=== PATIENT | male | born 1930 | race Caucasian/White ===

== ENCOUNTER 2020-03-31 18:10 | Inpatient (IN) | payer OTHER ==
[~2020-03-31] VITALS: Ht 182.9 cm; Wt 80.3 kg
--- NOTE | 2020-03-31 18:20 | NUR ---
pt bibra from [facility] to ed bed 04. per ems report, pt is here for worsening generalized weakness and sob for days. no covid status recieved from ems. pt gowned and placed on monitor. 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
--- NOTE | 2020-03-31 18:30 | NUR ---
dr morales at bedside for eval.
--- NOTE | 2020-03-31 18:45 | NUR ---
iv line started, blood drawn and sent to lab.
[2020-03-31 18:49] LABS: BASOPHILS % (AUTO) 0.3 % (0.0-2.0); EOSINOPHILS % (AUTO) 0.1 % (0.0-6.0); HEMATOCRIT 27 % (39-51); HEMOGLOBIN 8.3 g/dL (13.5-17.5); LYMPHOCYTES # (AUTO) 1.8 /CMM (0.8-4.8); LYMPHOCYTES % (AUTO) 16.6 % (20.0-44.0); MEAN CORPUSCULAR HGB CONC 31 g/dl (31.0-36.0); MEAN CORPUSCULAR VOLUME 74 fL (80-96); MONOCYTES # (AUTO) 1.3 /CMM (0.1-1.30); MONOCYTES % (AUTO) 12.4 % (2.0-12.0); NEUTROPHILS # (AUTO) 7.7 /CMM (1.8-8.9); NEUTROPHILS % (AUTO) 70.6 % (43.0-81.0); PLATELET COUNT (AUTO) 179 /CMM (150-450); RED BLOOD CELL COUNT(AUTO) 3.63 MIL/uL (4.5-6.0); WHITE BLOOD COUNT (AUTO) 10.9 K/uL (4.3-11.0)
[2020-03-31 19:03] LABS: BILIRUBIN,URINE Negative (NEGATIVE); COLOR,URINE YELLOW (YELLOW); LEUKOCYTE ESTERASE ,URINE Negative (NEGATIVE); NITRITE, URINE Negative (NEGATIVE); PH,URINE 6.5 (5.0-8.0); PROTEIN,URINE 30 mg/dl (NEGATIVE); UGLUCOSE Negative (NEGATIVE); UROBILINOGEN,URINE 0.2 EU/dL (0.2)
[2020-03-31 19:06] LABS: BACTERIA,URINE Rare /HPF (None Seen); SQUAMOUS EPITHELIAL CELL,UR Few /HPF (None Seen); WBC,URINE NONE SEEN /HPF (0-3)
--- NOTE | 2020-03-31 19:15 | NUR ---
rec'd report from MELISA Machado for laine
--- NOTE | 2020-03-31 19:16 | NUR ---
report given to esvin taylor for laine.
[2020-03-31] MEDS ORDERED: ACETAMINOPHEN 650 MG/SUPP.RECT RC ONE (19:30)
[2020-03-31 19:38] LABS: CALCIUM, SERUM 8.2 mg/dL (8.5-10.1); CARBON DIOXIDE 21 mmol/L (21-32); CHLORIDE 102 mmol/L (98-107); CREATININE 1.7 mg/dL (0.6-1.3); GLUCOSE 187 mg/dL (74-106); POTASSIUM 4.8 mmol/L (3.5-5.1); SODIUM SERUM 136 mmol/L (136-145); UREA NITROGEN, BLOOD 23 mg/dL (7-18)
--- NOTE | 2020-03-31 19:41 | NUR ---
covid swab sent to lab
[2020-03-31 19:44] LABS: ALANINE AMINOTRANSFERASE 17 U/L (12-78); ALBUMIN 2.3 g/dL (3.4-5.0); ALKALINE PHOSPHATASE 82 U/L (46-116); ASPARTATE AMINOTRANSFERASE 24 U/L (15-37); BILIRUBIN,DIRECT 0.2 mg/dL (0.0-0.2); BILIRUBIN,TOTAL 0.7 mg/dL (0.2-1.0)
[2020-03-31] MEDS ORDERED: NS 0.9% IV ONE (20:00)
[2020-03-31] MEDS ORDERED: VANCOMYCIN 1 GM in IV D5W 250 ML IV ONE (20:00)
[2020-03-31] MEDS ORDERED: CEFEPIME 1 GM in IV D5W 50 ML IV ONE (20:00)
[2020-03-31 20:01] LABS: CREATINE KINASE, TOTAL 82 U/L (39-308); D-DIMER 5.12 mg/L(FEU (0.17-0.50); FERRITIN 221 ng/mL (8-388)
[2020-03-31 20:20] LABS: BAND % (MANUAL) 4 % (0.0-5.0); LYMPHOCYTES % (MANUAL) 24 % (16-48); MONOCYTES % (MANUAL) 2 % (0-11.0); NEUTROPHILS % (MANUAL) 70 (42-76)
[2020-03-31] MEDS ORDERED: ONDANSETRON HCL/PF 4 MG/2 ML VIAL IVP PRN (22:00)
[2020-03-31] MEDS ORDERED: ACETAMINOPHEN 650 MG/SUPP.RECT RC PRN (22:00)
--- NOTE | 2020-03-31 22:02 | NUR ---
REC'D A CALL FROM QASIM AT [facility] WITH AUTHORIZATION TO ADMIT THE PT AT [facility]. AUTH # [id number]
--- NOTE | 2020-03-31 22:06 | NUR ---
lab at bedside for lactic redraw
[2020-03-31] MEDS ORDERED: CEFEPIME 1 GM VIAL ONE (22:07)
[2020-03-31] MEDS ORDERED: VANCOMYCIN 1 GM VIAL ONE (22:07)
--- NOTE | 2020-03-31 22:15 | NUR ---
pt placed on 2L via NC for comfort.
[2020-03-31 23:17] LABS: C-REACTIVE PROTEIN 11.3 mg/dL (0.0-0.9)
[2020-04-01] MEDS ORDERED: ALBUTEROL SULFATE 8 GM HFA.AER.AD IH PRN
[2020-04-01] MEDS: CEFTRIAXONE 1 G in IV D5W 50 ML IV SCH ×2 (00:15→20:00)
[2020-04-01] MEDS ORDERED: CEFTRIAXONE 1GM BAG (ER ONLY) 50 ML IV ONE ×2 (00:20→19:54)
[2020-04-01] MEDS ORDERED: AZITHROMYCIN 500 MG VIAL ONE ×2 (00:20→19:54)
[2020-04-01] MEDS: AZITHROMYCIN 500 MG in IV D5W 250 ML IV SCH ×2 (00:30→20:30)
--- NOTE | 2020-04-01 00:45 | NUR ---
pt readjusted and resting comfortably
[2020-04-01] MEDS ORDERED: IV NS 0.9% 1,000 ML IV ONE (03:00)
[2020-04-01] MEDS ORDERED: ASPI-1169 PO (03:54)
[2020-04-01] MEDS ORDERED: METO25TA6 PO (03:55)
[2020-04-01 04:40] LABS: BASOPHILS % (AUTO) 0.3 % (0.0-2.0); EOSINOPHILS % (AUTO) 0.1 % (0.0-6.0); HEMATOCRIT 26 % (39-51); LYMPHOCYTES # (AUTO) 4.4 /CMM (0.8-4.8); LYMPHOCYTES % (AUTO) 30.3 % (20.0-44.0); MEAN CORPUSCULAR HGB CONC 31 g/dl (31.0-36.0); MEAN CORPUSCULAR VOLUME 75 fL (80-96); MONOCYTES # (AUTO) 1.8 /CMM (0.1-1.30); MONOCYTES % (AUTO) 12.5 % (2.0-12.0); NEUTROPHILS # (AUTO) 8.2 /CMM (1.8-8.9); NEUTROPHILS % (AUTO) 56.8 % (43.0-81.0); PLATELET COUNT (AUTO) 166 /CMM (150-450); RED BLOOD CELL COUNT(AUTO) 3.49 MIL/uL (4.5-6.0); WHITE BLOOD COUNT (AUTO) 14.4 K/uL (4.3-11.0)
--- NOTE | 2020-04-01 05:00 | NUR ---
pt changed and made comfortable
[2020-04-01 05:08] LABS: ALANINE AMINOTRANSFERASE 12 U/L (12-78); ALKALINE PHOSPHATASE 73 U/L (46-116); ASPARTATE AMINOTRANSFERASE 24 U/L (15-37); BILIRUBIN,TOTAL 0.5 mg/dL (0.2-1.0); CALCIUM, SERUM 7.5 mg/dL (8.5-10.1); CARBON DIOXIDE 22 mmol/L (21-32); CHLORIDE 110 mmol/L (98-107); CREATININE 1.3 mg/dL (0.6-1.3); GLUCOSE 103 mg/dL (74-106); POTASSIUM 4.6 mmol/L (3.5-5.1); SODIUM SERUM 142 mmol/L (136-145); TOTAL PROTEIN, SERUM 6.3 g/dL (6.4-8.2); UREA NITROGEN, BLOOD 20 mg/dL (7-18)
[2020-04-01 05:14] LABS: FERRITIN 249 ng/mL (8-388)
[2020-04-01] MEDS: METOPROLOL TARTRATE 25 MG TABLET PO SCH ×3 (05:15→16:16)
[2020-04-01] MEDS ORDERED: METOPROLOL TARTRATE 25 MG TABLET ONE ×3 (05:15→16:05)
--- NOTE | 2020-04-01 07:05 | NUR ---
gave report to claudia bella for laine
[2020-04-01] MEDS ORDERED: ASPIRIN 81 MG TAB.CHEW ONE (08:13)
[2020-04-01] MEDS: ASPIRIN 81 MG TAB.CHEW PO SCH (08:26)
--- NOTE | 2020-04-01 08:38 | NUR ---
PATIENT TAKEN TO RADIOLOGY.
--- NOTE | 2020-04-01 09:06 | NUR ---
[facility] [phone] [facility].
--- NOTE | 2020-04-01 12:00 | NUR ---
PATIENT ASLEEP, BUT EASILY AROUSABLE. ALERT AND ORIENTED. NO DISTRESS NOTED, TURNED AND REPOSITIONED.
[2020-04-01] MEDS: IV NS 0.9% 1,000 ML IV PRN ×2 (16:02)
--- NOTE | 2020-04-01 17:03 | NUR ---
PATIENT NOTED TO HAVE TROUBLE SWALLOWING WHOLE PILLS AND REGULAR DIET, INFORMED MD AND CHANGED DIET TO PUREED CARDIAC. PATIENT'S KEPT COMFORTABLE. VS STABLE. CONTINUES ON 3LPM VIA NC WITH SPO2 OF 100%. NO DISTRESS NOTED.
--- NOTE | 2020-04-01 19:05 | NUR ---
REC'D REPORT FROM MELISA MCKEON FOR GIANCARLO
--- NOTE | 2020-04-01 22:30 | NUR ---
pt repositioned and made comfortable
--- NOTE | 2020-04-02 01:22 | NUR ---
pt sleeping. easily arousable
--- NOTE | 2020-04-02 04:27 | NUR ---
report given to MELISA Neri for laine.
[2020-04-02 04:34] VITALS: BP 117/49
[2020-04-02 04:54] LABS: BASOPHILS % (AUTO) 0.1 % (0.0-2.0); HEMATOCRIT 27 % (39-51); HEMOGLOBIN 8.4 g/dL (13.5-17.5); LYMPHOCYTES # (AUTO) 2.2 /CMM (0.8-4.8); LYMPHOCYTES % (AUTO) 17.2 % (20.0-44.0); MEAN CORPUSCULAR HGB CONC 31 g/dl (31.0-36.0); MEAN CORPUSCULAR VOLUME 74 fL (80-96); MONOCYTES # (AUTO) 1.2 /CMM (0.1-1.30); MONOCYTES % (AUTO) 9.8 % (2.0-12.0); NEUTROPHILS # (AUTO) 9.3 /CMM (1.8-8.9); NEUTROPHILS % (AUTO) 72.9 % (43.0-81.0); PLATELET COUNT (AUTO) 179 /CMM (150-450); RED BLOOD CELL COUNT(AUTO) 3.67 MIL/uL (4.5-6.0); WHITE BLOOD COUNT (AUTO) 12.7 K/uL (4.3-11.0)
[2020-04-02 05:00] VITALS: BP 117/49
--- NOTE | 2020-04-02 05:30 | NUR ---
RN NOTE PT ARRIVED TO THE UNIT VIA GURNEY. PT IS A/A/O 3, PT ON TELE MONITOR SHOWING ST HEART RATE IN 130s. PT IS ON 2 L VIA NC SATING 96%, PT HAS UNLABORED BREATHING. SAFETY MEASURES IN PLACE.
[2020-04-02 05:35] LABS: CALCIUM, SERUM 8.2 mg/dL (8.5-10.1); CREATININE 1.3 mg/dL (0.6-1.3); MAGNESIUM 1.9 mg/dL (1.8-2.4); PHOSPHORUS 2.9 mg/dL (2.5-4.9); POTASSIUM 4.6 mmol/L (3.5-5.1)
[2020-04-02] MEDS: IV NS 0.9% 1,000 ML IV PRN ×2 (05:50→20:20)
--- NOTE | 2020-04-02 07:38 | NUR ---
RN NOTE PT REMAINED STABLE DURING MY SHIFT NO ACUTE CHANGES REPORT GIVEN TO INCOMING PT FOR GIANCARLO.
[2020-04-02 08:00] VITALS: BP 127/66
--- NOTE | 2020-04-02 08:00 | NUR ---
RN Opening note Received patient in bed, awaken able to responds all stimuli, Pt does no c/o pain or distress. Skin is warm to touch keep clean/dry intact IV site, respiratory even and unlabored with oxygen at 2L via NC O2sat 96%. Kept locked bed with elevated HOB for aspiration precaution and ensure airway and lowest bed foe safety. Call light within reach, will continue to monitor.
[2020-04-02] MEDS: ASPIRIN 81 MG TAB.CHEW PO SCH (09:24)
[2020-04-02] MEDS: METOPROLOL TARTRATE 25 MG TABLET PO SCH ×2 (09:25→16:40)
[2020-04-02] MEDS: ACETAMINOPHEN 325 MG TABLET PO PRN (09:25)
[2020-04-02 16:00] VITALS: BP 153/98
--- NOTE | 2020-04-02 17:47 | NUR ---
RN closing Patient in bed resting, does no appears distress or discomfort. Skin is warm to touch, keep clean/dry, intact IV site on right hand 20g running NS at 70ml. Respiratory even and unlabored with oxygen at 2L O2sat 96%. Kept elevated HOB for ensure air way and aspiration precaution and lowest bed for safety. Call light within reach, will endorse foundry metallurgist
[2020-04-02 18:51] VITALS: BP 153/98
--- NOTE | 2020-04-02 19:50 | NUR ---
RN NOTES RECEIVED PT IN BED. VERBALLY RESPONSIVE. ON O2 VIA NC AT 2LPM. NO DISTRESS NOTED. ON TELE MONITORING SHOWS SINUS TACH WITH HR OF 111. PT DENIES PAIN. WITH RIGHT HAND IV, NS RUNNING AT 70ML/HR. NO SIGNS OF INFILTRATION NOTED. ALL SAFETY MEASURES IMPLEMENTED PER PROTOCOL. BED LOCKED IN LOWEST POSITION, CALL LIGHT WITHIN REACH. SIDE RAILS UP X2.
[2020-04-02 20:00] VITALS: BP 114/51
[2020-04-02] MEDS: CEFTRIAXONE 1 G in IV D5W 50 ML IV SCH (20:20)
[2020-04-02 20:31] LABS: BILIRUBIN,URINE NEGATIVE (NEGATIVE); COLOR,URINE YELLOW (YELLOW); LEUKOCYTE ESTERASE ,URINE TRACE (NEGATIVE); NITRITE, URINE NEGATIVE (NEGATIVE); PH,URINE 5.5 (5.0-8.0); PROTEIN,URINE 30 mg/dl (NEGATIVE); UGLUCOSE NEGATIVE (NEGATIVE); UROBILINOGEN,URINE 0.2 EU/dL (0.2)
[2020-04-02 20:32] LABS: CREATININE, URINE 78.9 MG/DL (30.0-125.0); URINE TOTAL PROTEIN 97.4 mg/dL (0-11.9)
[2020-04-02 20:58] LABS: BACTERIA,URINE 1+ /HPF (None Seen); RBC,URINE TOO NUMEROUS TO COUN /HPF (0-2); SQUAMOUS EPITHELIAL CELL,UR 0-2 /HPF (None Seen)
[2020-04-02 21:07] LABS: EOSINOPHIL,URINE None Seen
[2020-04-02] MEDS: AZITHROMYCIN 500 MG in IV D5W 250 ML IV SCH (21:14)
[2020-04-03] VITALS: BP 101/81
[2020-04-03 04:00] VITALS: BP 108/74
--- NOTE | 2020-04-03 06:40 | NUR ---
RN CLOSING NOTES PT REMAINS IN BED WITH EPISODE OF CONFUSION, REORIENTED TO PLACE AND SITUATION. PT CONTINUE ON O2 AT 2LPM VIA NC, TOLERATING. NO RESP DISTRESS NOTED. ATTENDED TO NEEDS. NO SIGNIFICANT CHANGES NOTED. KEPT CLEAN AND COMFORTABLE. BED REMAIN LOCKED IN LOWEST POSITION. SIDE RAILS UP. CALL LIGHT WITHIN REACH AT ALL TIMES.
[2020-04-03 06:45] LABS: BASOPHILS % (AUTO) 0.3 % (0.0-2.0); HEMATOCRIT 24 % (39-51); HEMOGLOBIN 7.5 g/dL (13.5-17.5); LYMPHOCYTES # (AUTO) 1.8 /CMM (0.8-4.8); LYMPHOCYTES % (AUTO) 18.5 % (20.0-44.0); MEAN CORPUSCULAR HGB CONC 32 g/dl (31.0-36.0); MEAN CORPUSCULAR VOLUME 72 fL (80-96); MONOCYTES # (AUTO) 0.9 /CMM (0.1-1.30); MONOCYTES % (AUTO) 9.5 % (2.0-12.0); NEUTROPHILS # (AUTO) 6.9 /CMM (1.8-8.9); NEUTROPHILS % (AUTO) 71.7 % (43.0-81.0); PLATELET COUNT (AUTO) 146 /CMM (150-450); RED BLOOD CELL COUNT(AUTO) 3.27 MIL/uL (4.5-6.0); WHITE BLOOD COUNT (AUTO) 9.7 K/uL (4.3-11.0)
--- NOTE | 2020-04-03 07:00 | NUR ---
RN CLOSING NOTE PT SINUS TACH ON TELE MONITOR. NO SIGNS OF DISTRESS. IVF NS INFUSING WELL ON RIGHT WRIST RUNNING AT 100ML/HR. NO SIGNS OF INFILTRATION. PT DENIES PAIN.
[2020-04-03 07:16] LABS: CALCIUM, SERUM 7.7 mg/dL (8.5-10.1); CREATININE 1.2 mg/dL (0.6-1.3); MAGNESIUM 1.7 mg/dL (1.8-2.4); PHOSPHORUS 2.4 mg/dL (2.5-4.9); POTASSIUM 4.3 mmol/L (3.5-5.1)
--- NOTE | 2020-04-03 07:26 | NUR ---
YARD STOCKER OPENING NOTES RECEIVED PATIENT IN BED, AWAKE, A/O X3. PATIENT ON OXYGEN THERAPY AT 2 LPM VIA NASAL CANULA; BREATHING EVEN NO SOB NOTED AT THIS TIME. TELE MONITOR WITH A CURRENT READING OF ST 120. NO COMPLAINS OF PAIN AT THIS MOMENT. R WRIST IV ACCESS G #20 PRESENT AND INTACT RUNNING NS @70 MLS/HR. SAFETY PRECAUTIONS IN PLACE; BED IN LOW POSITION AND LOCKED, RAILS UP X3, CALL LIGHT WITHIN REACH. WILL CONTINUE TO MONITOR PATIENT.
[2020-04-03 08:00] VITALS: BP 137/67
[2020-04-03 08:07] LABS: PTH, INTACT 54 pg/mL (15-65)
[2020-04-03] MEDS: ACETAMINOPHEN 325 MG TABLET PO PRN (08:12)
[2020-04-03] MEDS: ASPIRIN 81 MG TAB.CHEW PO SCH (08:12)
[2020-04-03] MEDS: METOPROLOL TARTRATE 25 MG TABLET PO SCH ×2 (08:13→16:37)
--- NOTE | 2020-04-03 08:19 | NUR ---
SENIOR QUALITY ANALYST NOTES FEVER NOTED ON 100.3 PRN ACETAMINOPHEN ADMINISTERED
[2020-04-03] MEDS: Magnesium 1GM/D5W 100ML PREMIX 100 ML IV SCH ×2 (10:58→12:10)
[2020-04-03] MEDS ORDERED: NEUTRA PHOS 1 POWD.PACKET PO ONE (11:00)
[2020-04-03 16:00] VITALS: BP 126/80
[2020-04-03] MEDS: IV NS 0.9% 1,000 ML IV PRN (16:30)
[2020-04-03 17:06] LABS: *SPE A/G RATIO 0.6 (0.7-1.7); *SPE ALBUMIN 2.3 g/dL (2.9-4.4); *SPE ALPHA-1-GLOBULIN 0.3 g/dL (0.0-0.4); *SPE ALPHA-2-GLOBULIN 0.9 g/dL (0.4-1.0); *SPE BETA GLOBULIN 0.9 g/dL (0.7-1.3); *SPE GLOBULIN, TOTAL 3.7 g/dL (2.2-3.9); *SPE M-SPIKE Not Observed g/dL (Not Observed); *SPEGAMMA GLOBULIN 1.6 g/dL (0.4-1.8)
--- NOTE | 2020-04-03 17:30 | NUR ---
LABORATORY TECHNOLOGY TEACHER NOTES LAB CALLED WITH A NEGATIVE RAPID RESULT FOR COVID-19
--- NOTE | 2020-04-03 19:18 | NUR ---
VEHICLE OPERATOR TECHNICIAN CLOSING NOTES PATIENT REMAINS IN BED, AWAKE, A/O X3. PATIENT ON OXYGEN THERAPY AT 2 LPM VIA NASAL CANULA; BREATHING EVEN NO SOB NOTED DURING SHIFT. TELE MONITOR WITH A CURRENT READING OF SR 100. NO COMPLAINS OF PAIN DURING THE DAY. R WRIST IV ACCESS G #20 PRESENT AND INTACT RUNNING NS @70 MLS/HR. ALL NEEDS ATTENDED THROUGHOUT THE DAY. SAFETY PRECAUTIONS IN PLACE; BED IN LOW POSITION AND LOCKED, RAILS UP X3, CALL LIGHT WITHIN REACH. WILL ENDORSE TO CATERING TRUCK OPERATOR NURSE.
--- NOTE | 2020-04-03 19:28 | NUR ---
proposal editor notes Received a phone call from snow [place] regarding Covid PCR result negative. Will continue to monitor.
--- NOTE | 2020-04-03 19:36 | NUR ---
house wirer notes Informed and notified retail warehouse supervisor regarding Pt's covid PCR negative. Awaiting order to transfer.
[2020-04-03 20:00] VITALS: BP 107/63
[2020-04-03] MEDS: CEFTRIAXONE 1 G in IV D5W 50 ML IV SCH (20:18)
[2020-04-03] MEDS: AZITHROMYCIN 500 MG in IV D5W 250 ML IV SCH (20:52)
--- NOTE | 2020-04-03 20:59 | NUR ---
engineering professionals opening notes Received Pt from morning nurse. Pt is resting in bed comfortably. Pt is alert and orientedX2. Respiration is 2 L NC with O2 sat is 100%. No SOB. No S/S of distress noted. Tele monitor showed SR hr at 100 bpm. IV sites at R wrist# 20 is clean, intact and infusing well NS@ 75 ml/hr. Safety precautions is maintained. Bed at low position, brakes locked, side rails upX2 and call light is within reach. Will continue to monitor. Addendum: 04/03/20 at 2107 by GREGORY DAY RN Received Pt at 1924
--- NOTE | 2020-04-03 22:25 | NUR ---
healthcare administration internship notes Gave report to MELISA Garcia for GIANCARLO.
--- NOTE | 2020-04-03 22:45 | NUR ---
fish egg packer notes Transferred Pt to room 310-2 with ACLS protocol.
--- NOTE | 2020-04-03 23:00 | NUR ---
RN NOTES PT transferred form M2 Pt is resting in bed comfortably. Pt is alert and orientedX2. on 2 L NC with O2 sat is 100% tolerating well. No SOB. No S/S of distress noted. Tele monitor showed SR hr at 100 bpm. IV sites at R wrist# 20 is clean, intact and infusing well NS@ 75 ml/hr. Safety precautions is maintained. Bed at low position, brakes locked, side rails upX2 and call light is within reach. Will continue to monitor.
[2020-04-04] VITALS: BP 130/73
[2020-04-04 04:00] VITALS: BP 123/82
--- NOTE | 2020-04-04 06:34 | NUR ---
RN NOTES Pt is resting in bed comfortably. Pt is alert and orientedX2. on 2 L NC with O2 sat is 98% tolerating well. No SOB. No S/S of distress noted. Tele monitor showed SR hr at 100 bpm. IV sites at R wrist# 20 is clean, intact and infusing well NS@ 75 ml/hr. Safety precautions is maintained. Bed at low position, brakes locked, side rails upX2 and call light is within reach. WILL ENDORSE CARE TO DAYSHIFT NURSE..
[2020-04-04] MEDS: ACETAMINOPHEN 325 MG TABLET PO PRN (07:29)
[2020-04-04 07:30] LABS: CALCIUM, SERUM 8.1 mg/dL (8.5-10.1); CREATININE 1.1 mg/dL (0.6-1.3); MAGNESIUM 2.1 mg/dL (1.8-2.4); PHOSPHORUS 2.7 mg/dL (2.5-4.9); POTASSIUM 4.3 mmol/L (3.5-5.1)
--- NOTE | 2020-04-04 07:36 | NUR ---
CHEMISTRY QUALITY CONTROL TECHNICIAN OPENING NOTES RECEIVED PATIENT IN BED, AWAKE, A/O X3. PATIENT ON OXYGEN THERAPY AT 2 LPM VIA NASAL CANULA; BREATHING EVEN WITH SOME MILD SOB DUE TO RUNNING FEVER OF 100.9 PRN TYLENOL ADMINISTERED WILL REASSESS. NO COMPLAINS OF PAIN AT THIS MOMENT. R WRIST IV ACCESS G #20 PRESENT AND INTACT RUNNING NS @70 MLS/HR. SAFETY PRECAUTIONS IN PLACE; BED IN LOW POSITION AND LOCKED, RAILS UP X3, CALL LIGHT WITHIN REACH. WILL CONTINUE TO MONITOR PATIENT.
[2020-04-04 08:00] VITALS: BP 128/63
[2020-04-04] MEDS: ASPIRIN 81 MG TAB.CHEW PO SCH (08:08)
[2020-04-04] MEDS: METOPROLOL TARTRATE 25 MG TABLET PO SCH ×2 (08:09→16:36)
[2020-04-04] MEDS: MUPIROCIN OINT 2% 22 GM TUBE NS SCH ×2 (10:13→20:20)
[2020-04-04] MEDS: IV NS 0.9% 1,000 ML IV PRN (17:46)
--- NOTE | 2020-04-04 18:57 | NUR ---
DIGITAL FORENSIC ANALYST CLOSING NOTES PATIENT REMAINS IN BED, AWAKE, A/O X3. PATIENT ON OXYGEN THERAPY AT 2 LPM VIA NASAL CANULA; BREATHING EVEN AND UNLABORED DURING DAY. AFEBRILE AT THIS TIME. NO COMPLAINS OF PAIN DURING THE DAY. R WRIST IV ACCESS G #24 PRESENT AND INTACT RUNNING NS @70 MLS/HR. ALL NEEDS ATTENDED THROUGHOUT THE DAY. SAFETY PRECAUTIONS IN PLACE; BED IN LOW POSITION AND LOCKED, RAILS UP X3, CALL LIGHT WITHIN REACH. WILL ENDORSE TO OUTSIDE MACHINIST SUPERVISOR NURSE.
--- NOTE | 2020-04-04 19:30 | NUR ---
MS RN OPENING NOTE RECEIVED PATIENT IN BED. A/OX2. ON OXYGEN 2L/MIN VIA NASAL CANNULA. RESPIRATIONS ARE EVEN AND UNLABORED NO S/S SOB NOTED. C/O PAIN ONLY WHEN MOVING. IN NO APPARENT DISTRESS. IV ACCESS IN RIGHT WRIST #24 RUNNING NS@70ML/HR. BED IS LOW AND LOCKED, HOB ELEVATED IN HIGH FOWLERS, SIDE RIALS UP X3, CALL LIGHT WITHIN REACH. WILL CONTINUE TO MONITOR THROUGHOUT SHIFT.
[2020-04-04 20:00] VITALS: BP 129/67
[2020-04-04] MEDS: CEFTRIAXONE 1 G in IV D5W 50 ML IV SCH (20:20)
[2020-04-05 06:21] LABS: BASOPHILS % (AUTO) 0.1 % (0.0-2.0); EOSINOPHILS % (AUTO) 0.1 % (0.0-6.0); HEMATOCRIT 24 % (39-51); HEMOGLOBIN 7.2 g/dL (13.5-17.5); LYMPHOCYTES # (AUTO) 1.6 /CMM (0.8-4.8); LYMPHOCYTES % (AUTO) 19.3 % (20.0-44.0); MEAN CORPUSCULAR HGB CONC 30 g/dl (31.0-36.0); MEAN CORPUSCULAR VOLUME 76 fL (80-96); MONOCYTES # (AUTO) 0.8 /CMM (0.1-1.30); MONOCYTES % (AUTO) 10.2 % (2.0-12.0); NEUTROPHILS # (AUTO) 5.8 /CMM (1.8-8.9); NEUTROPHILS % (AUTO) 70.3 % (43.0-81.0); PLATELET COUNT (AUTO) 112 /CMM (150-450); RED BLOOD CELL COUNT(AUTO) 3.15 MIL/uL (4.5-6.0); WHITE BLOOD COUNT (AUTO) 8.3 K/uL (4.3-11.0)
[2020-04-05 06:54] LABS: CALCIUM, SERUM 7.7 mg/dL (8.5-10.1); CREATININE 1.1 mg/dL (0.6-1.3); PHOSPHORUS 2.6 mg/dL (2.5-4.9)
--- NOTE | 2020-04-05 06:54 | NUR ---
MS RN EXITING NOTE PATIENT RESTING IN BED. A/OX2. REMAINS ON OXYGEN 2L/MIN VIA NASAL CANNULA. NO RESP DISTRESS. NO C/O PAIN. NO DISTRESS. IV ACCESS MAINTAINED IN RIGHT WRIST #24 RUNNING NS@70ML/HR. BED REMAINS LOW AND LOCKED, HOB ELEVATED IN HIGH FOWLERS, SIDE RIALS UP X3, CALL LIGHT WITHIN REACH. WILL ENDORSE TO NEXT SHIFT.
--- NOTE | 2020-04-05 07:45 | NUR ---
MS RN NOTE PATIENT IN BED RESTING COMFORTABLY. PATIENT IN NO ACUTE DISTRESS. NO SOB NOTED. PATIENT BREATHING IS EVEN AND UNLABORED. PATIENT SAFETY PRECAUTIONS IN PLACE. PATIENT BED IS LOCKED AND IN LOWEST POSITION. CALL LIGHT WITHIN REACH. WILL CONTINUE TO MONITOR.
[2020-04-05 08:00] VITALS: BP 128/69
[2020-04-05] MEDS: MUPIROCIN OINT 2% 22 GM TUBE NS SCH ×2 (09:03→21:03)
[2020-04-05] MEDS: ASPIRIN 81 MG TAB.CHEW PO SCH (09:03)
[2020-04-05] MEDS: METOPROLOL TARTRATE 25 MG TABLET PO SCH ×2 (09:04→16:59)
[2020-04-05] MEDS: IV D5/ 0.9% NACL 1,000 ML IV PRN (09:43)
[2020-04-05 09:52] LABS: BAND % (MANUAL) 21 % (0.0-5.0); EOSINOPHILS % (MANUAL) 1 % (0-4); LYMPHOCYTES % (MANUAL) 22 % (16-48); MONOCYTES % (MANUAL) 9 % (0-11.0); NEUTROPHILS % (MANUAL) 47 (42-76)
--- NOTE | 2020-04-05 10:07 | NUR ---
MS RN NOTE SPOKE WITH BRUCE GILL REGARDING PATIENT PLAN PER BRIDGET PATIENT WILL HAVE SWALLOW EVAL TOMORROW AND TO KEEP NPO AT THIS TIME DUE TO DYSPHAGIA.
[2020-04-05 16:00] VITALS: BP 116/61
--- NOTE | 2020-04-05 16:59 | NUR ---
MS RN NOTE PATIENT TEMPERATURE 99.6F, IMPLEMENTED COOLING MEASURES.
--- NOTE | 2020-04-05 19:00 | NUR ---
MS RN NOTE PATIENT WITH NO BM DURING MY SHIFT WILL ENDORSE TO PM SHIFT FOR FOLLOW UP.
--- NOTE | 2020-04-05 19:03 | NUR ---
MS RN NOTE PATIENT IN BED RESTING COMFORTABLY. PATIENT IN NO ACUTE DISTRESS. NO SOB NOTED. PATIENT BREATHING IS EVEN AND UNLABORED. PATIENT MAINTAINED NPO STATUS. PATIENT KEPT CLEAN, DRY, AND COMFORTABLE THROUGHOUT SHIFT. PATIENT SAFETY PRECAUTIONS IN PLACE. PATIENT BED IS LOCKED AND IN LOWEST POSITION. CALL LIGHT WITHIN REACH. WILL ENDORSE CARE TO PM SHIFT FOR GIANCARLO.
--- NOTE | 2020-04-05 19:30 | NUR ---
MS MELISA OPENING NOTE RECEIVED PATIENT IN BED. A/OX2. ON OXYGEN 2L/MIN VIA NASAL CANNULA. RESPIRATIONS ARE EVEN AND UNLABORED NO S/S SOB NOTED. NO C/O PAIN. IN NO APPARENT DISTRESS. IV ACCESS IN RIGHT WRIST #24 RUNNING NS@100ML/HR. BED IS LOW AND LOCKED, HOB ELEVATED IN HIGH FOWLERS, SIDE RIALS UP X3, CALL LIGHT WITHIN REACH. WILL CONTINUE TO MONITOR THROUGHOUT SHIFT. Addendum: 04/06/20 at 0823 by MALGORZATA VELASQUEZ RN PATIENT ON D5NS@100
[2020-04-05 20:00] VITALS: BP_SYST 127; BP_SYST 138; BP_DIAS 64; BP_DIAS 70
--- NOTE | 2020-04-05 21:04 | NUR ---
ms taylor note temp 100 removed blankets. ac turned on
[2020-04-06] MEDS: IV D5/ 0.9% NACL 1,000 ML IV PRN ×2 (05:24→19:16)
[2020-04-06 07:08] LABS: BASOPHILS % (AUTO) 0.1 % (0.0-2.0); EOSINOPHILS % (AUTO) 0.1 % (0.0-6.0); HEMATOCRIT 22 % (39-51); HEMOGLOBIN 7.2 g/dL (13.5-17.5); LYMPHOCYTES # (AUTO) 1.9 /CMM (0.8-4.8); LYMPHOCYTES % (AUTO) 22.6 % (20.0-44.0); MEAN CORPUSCULAR HGB CONC 32 g/dl (31.0-36.0); MEAN CORPUSCULAR VOLUME 72 fL (80-96); MONOCYTES # (AUTO) 0.9 /CMM (0.1-1.30); MONOCYTES % (AUTO) 11.2 % (2.0-12.0); NEUTROPHILS # (AUTO) 5.5 /CMM (1.8-8.9); PLATELET COUNT (AUTO) 103 /CMM (150-450); RED BLOOD CELL COUNT(AUTO) 3.13 MIL/uL (4.5-6.0); WHITE BLOOD COUNT (AUTO) 8.3 K/uL (4.3-11.0)
--- NOTE | 2020-04-06 07:10 | NUR ---
RN OPENING NOTE RECEIVED PT AWAKE IN BED AT THIS TIME. AOX2. NO SOB NOTED, NO S/S OF ANY ACUTE DISTRESS NOTED, NO C/O PAIN AT THIS TIME. IV ACCESS NOTED IN RIGHT WRIST G#24, INTACT PATENT AND FLUSHING WELL. PT ON OXYGEN 2LPM VIA NC SATURATING @ 96%. ASPIRATIONS AND SAFETY PRECAUTIONS IN PLACE AND MAINTAINED AT ALL TIMES. BED IN LOWEST LOCKED POSITION, SIDE RAILS UP, HOB ELEVATED, TABLE AND CALL LIGHT WITHIN REACH. WILL CONTINUE TO MONITOR.
[2020-04-06 07:23] LABS: CARBON DIOXIDE 23 mmol/L (21-32); CHLORIDE 109 mmol/L (98-107); CREATININE 1.1 mg/dL (0.6-1.3); GLUCOSE 117 mg/dL (74-106); POTASSIUM 3.9 mmol/L (3.5-5.1); SODIUM SERUM 141 mmol/L (136-145); UREA NITROGEN, BLOOD 15 mg/dL (7-18)
[2020-04-06 07:43] LABS: CHOLESTEROL 83 mg/dL (<200); LDL 30 mg/dL (0-99); TRIGLYCERIDES 267 mg/dL (30-150)
[2020-04-06 08:00] VITALS: BP 141/79
[2020-04-06 08:14] LABS: HDL CHOLESTEROL < 10 mg/dL (40-60)
--- NOTE | 2020-04-06 08:15 | NUR ---
MS VINCENT OPENING NOTE PATIENT IN BED. A/OX2. ON OXYGEN 2L/MIN VIA NASAL CANNULA. NO RESP DISTRESS NO C/O PAIN. NO DISTRESS. IV ACCESS MAINTAINED IN RIGHT WRIST #24 RUNNING NS@100ML/HR. BED REMAINS LOW AND LOCKED, HOB ELEVATED IN HIGH FOWLERS, SIDE RIALS UP X3, CALL LIGHT WITHIN REACH. WILL ENDORSE TO ONCOMING SHIFT Addendum: 04/06/20 at 821 by MALGORZATA VELASQUEZ RN PATIENT ON D5NS@100 Addendum: 04/06/20 at 08 by MALGORZATA VELASQUEZ RN CLOSING NOTE PATIENT ON D5NS@100
[2020-04-06] MEDS: METOPROLOL TARTRATE 25 MG TABLET PO SCH ×2 (08:59→16:55)
[2020-04-06] MEDS: ASPIRIN 81 MG TAB.CHEW PO SCH (08:59)
[2020-04-06] MEDS: MUPIROCIN OINT 2% 22 GM TUBE NS SCH ×2 (10:59→21:39)
[2020-04-06 13:22] LABS: BAND % (MANUAL) 3 % (0.0-5.0); LYMPHOCYTES % (MANUAL) 17 % (16-48); MONOCYTES % (MANUAL) 8 % (0-11.0); MYELOCYTES % 1 % (0-0); NEUTROPHILS % (MANUAL) 71 (42-76)
[2020-04-06 16:00] VITALS: BP 137/50
--- NOTE | 2020-04-06 19:13 | NUR ---
RN CLOSING NOTES PT AWAKE IN BED AT THIS TIME AT THIS TIME. PT REMAINED STABLE THROUGHOUT SHIFT. PT REMAINED ON OXYGEN @ 2LPM VIA NC. ALL CARE, NEED, MEDICATIONS AND TREATMENT ADMINISTERED ANTICIPATED PER ORDER. PT KEPT CLEAN AND DRY. LINENS CHANGED AND KEPT CLEAN. PT ASSISTED PRN. PT REPOSITIONED Q2HR AND PRN. ASPIRATION, RESPIRATION, AND SAFETY PRECAUTION IN PLACE AND MAINTAINED AT ALL TIMES. BED IN LOWEST LOCKED POSITION, HOB ELEVATED, SIDE RAILS UP X 2, CALL LIGHT AND TABLE WITHIN REACH. WILL ENDORSE TO CREDIT AND COLLECTION MANAGER NURSE FOR GIANCARLO
[2020-04-06 20:00] VITALS: BP 116/65
--- NOTE | 2020-04-06 21:08 | NUR ---
bladder [id number].
[2020-04-06] MEDS: CEFTRIAXONE 1 G in IV D5W 50 ML IV SCH (21:38)
[2020-04-06] MEDS: DOCUSATE SODIUM 100 MG CAPSULE PO SCH (21:38)
--- NOTE | 2020-04-07 06:06 | NUR ---
bladder [id number].
[2020-04-07 06:35] LABS: BASOPHILS % (AUTO) 0.1 % (0.0-2.0); EOSINOPHILS % (AUTO) 0.1 % (0.0-6.0); HEMATOCRIT 22 % (39-51); LYMPHOCYTES # (AUTO) 1.7 /CMM (0.8-4.8); LYMPHOCYTES % (AUTO) 22.9 % (20.0-44.0); MEAN CORPUSCULAR HGB CONC 32 g/dl (31.0-36.0); MEAN CORPUSCULAR VOLUME 72 fL (80-96); MONOCYTES # (AUTO) 0.9 /CMM (0.1-1.30); MONOCYTES % (AUTO) 11.9 % (2.0-12.0); NEUTROPHILS # (AUTO) 4.8 /CMM (1.8-8.9); PLATELET COUNT (AUTO) 80 /CMM (150-450); WHITE BLOOD COUNT (AUTO) 7.4 K/uL (4.3-11.0)
[2020-04-07 06:51] LABS: CALCIUM, SERUM 8.2 mg/dL (8.5-10.1); CREATININE 1.1 mg/dL (0.6-1.3); POTASSIUM 3.6 mmol/L (3.5-5.1)
--- NOTE | 2020-04-07 07:31 | NUR ---
MS RN OPENING NOTES RECEIVED PATIENT IN BED, AWAKE, A/O X2. PATIENT ON OXYGEN THERAPY AT 2 LPM VIA NASAL CANNULA; BREATHING EVEN AND UNLABORED; LOOKS FLASHED; FEVER NOTED OF 101, WILL ADMINISTER PRN TYLENOL. NO COMPLAINS OF PAIN AT THIS TIME. R WRIST G # 24 IV ACCESS PRESENT AND INFUSING D5NS @75 MLS/HR. SAFETY PRECAUTIONS IN PLACE; BED IN LOW POSITION AND LOCKED, RAILS UP X2, CALL LIGHT WITHIN REACH. WILL CONTINUE TO MONITOR PATIENT.
[2020-04-07] MEDS: ACETAMINOPHEN 325 MG TABLET PO PRN (07:41)
--- NOTE | 2020-04-07 07:42 | NUR ---
MS RN NOTES FEVER OF 101 NOTED. WILL ADMINISTER PRN TYLENOL.
[2020-04-07 08:00] VITALS: BP 106/64
[2020-04-07] MEDS: MUPIROCIN OINT 2% 22 GM TUBE NS SCH ×2 (08:00→21:21)
[2020-04-07 08:07] LABS: HEMOGLOBIN 6.9 g/dL (13.5-17.5)
--- NOTE | 2020-04-07 08:15 | NUR ---
MS RN NOTES LAB CALLED WITH A CRITICAL RESULT FOR HGB OF 6.9. NOTIFIED.
[2020-04-07] MEDS: DOCUSATE SODIUM 100 MG CAPSULE PO SCH ×2 (08:22→17:12)
[2020-04-07] MEDS: ASPIRIN 81 MG TAB.CHEW PO SCH (08:23)
[2020-04-07] MEDS: METOPROLOL TARTRATE 25 MG TABLET PO SCH ×2 (08:23→17:12)
[2020-04-07 11:15] LABS: BAND % (MANUAL) 5 % (0.0-5.0); LYMPHOCYTES % (MANUAL) 23 % (16-48); MONOCYTES % (MANUAL) 6 % (0-11.0); NEUTROPHILS % (MANUAL) 66 (42-76)
[2020-04-07] MEDS ORDERED: ACETAMINOPHEN 325 MG TABLET PO ONE (13:30)
[2020-04-07] MEDS ORDERED: diphenhydrAMINE HCL 50 MG/ML VIAL IV ONE (13:30)
[2020-04-07] MEDS ORDERED: SOD FERRIC GLUC 125 MG in IV NS 0.9% 100 ML IV SCH (14:00)
--- NOTE | 2020-04-07 14:35 | NUR ---
MS RN NOTES BLADDER SCAN DONE. 152 MLS PRESENT
--- NOTE | 2020-04-07 15:42 | NUR ---
MS RN NOTES CALLED PATIENT'S BOARD AND CARE USING THE PHONE NUMBER WE HAVE IN THE SYSTEM TO CONFIRM IF PATIENT HAS ANY FAMILY OR FRIENDS THAT COULD POSSIBLY MAKE A DECISION FOR HIM OR SIGN A CONSENT. TALKED TO SALVADOR, THE PROFILING MACHINE SET UP OPERATOR TOOL. PER SALVADOR PATIENT IS AN [facility] PATIENT AND HAS NO FAMILY OR FRIENDS WHO ARE AUTHORIZED TO MAKE A DECISION FOR HIM.
[2020-04-07 16:00] VITALS: BP 145/100
[2020-04-07] MEDS: FERROUS SULFATE (325 MG) 325 MG/TAB TABLET PO SCH (17:12)
[2020-04-07] MEDS: IV D5/ 0.9% NACL 1,000 ML IV PRN (18:21)
--- NOTE | 2020-04-07 19:20 | NUR ---
MS RN CLOSING NOTES PATIENT REMAINS IN BED, AWAKE, A/O X1. PATIENT ON OXYGEN THERAPY AT 2 LPM VIA NASAL CANNULA; BREATHING EVEN AND UNLABORED. NO COMPLAINS OF PAIN DURING SHIFT. R WRIST G # 24 IV ACCESS PRESENT AND INFUSING D5NS @75 MLS/HR. ALL NEEDS ATTENDED THROUGHOUT THE DAY. GOT CONSENT FROM 2 PHYSICIANS IN ORDER TO BE ABLE TO TRANSFUSE 1 UNIT OF PRBC; ENDORSED TO FISH PITCHER NURSE. SAFETY PRECAUTIONS IN PLACE; BED IN LOW POSITION AND LOCKED, RAILS UP X2, CALL LIGHT WITHIN REACH. GIANCARLO ENDORSED TO FISH PITCHER NURSE.
--- NOTE | 2020-04-07 19:34 | NUR ---
RN NOTES PATIENT REMAINS IN BED, AWAKE, A/O X1. PATIENT ON OXYGEN THERAPY AT 2 LPM VIA NASAL CANNULA; BREATHING EVEN AND UNLABORED. NO COMPLAINS OF PAIN DURING SHIFT. R WRIST G # 24 IV ACCESS PRESENT AND INFUSING D5NS @75 MLS/HR. PT TO HAVE BLOOD TRANSFUSION TONIGHT.SAFETY PRECAUTIONS IN PLACE; BED IN LOW POSITION AND LOCKED, RAILS UP X2, CALL LIGHT WITHIN REACH. WILL CONTINUE TO MONITOR.
[2020-04-07 20:45] VITALS: BP 127/63
[2020-04-07] MEDS: CEFTRIAXONE 1 G in IV D5W 50 ML IV SCH (21:20)
[2020-04-07] MEDS ORDERED: diphenhydrAMINE HCL 50 MG/ML VIAL ONE (22:46)
[2020-04-07 23:28] VITALS: BP 127/63
[2020-04-07 23:44] VITALS: BP 124/99
[2020-04-08] VITALS (7 sets, daily range): BP systolic 110–138; BP diastolic 60–77
[2020-04-08 06:41] LABS: BASOPHILS % (AUTO) 0.3 % (0.0-2.0); HEMATOCRIT 23 % (39-51); HEMOGLOBIN 7.4 g/dL (13.5-17.5); LYMPHOCYTES # (AUTO) 1.4 /CMM (0.8-4.8); LYMPHOCYTES % (AUTO) 19.7 % (20.0-44.0); MEAN CORPUSCULAR HGB CONC 32 g/dl (31.0-36.0); MEAN CORPUSCULAR VOLUME 74 fL (80-96); MONOCYTES # (AUTO) 0.8 /CMM (0.1-1.30); MONOCYTES % (AUTO) 10.9 % (2.0-12.0); NEUTROPHILS # (AUTO) 4.9 /CMM (1.8-8.9); NEUTROPHILS % (AUTO) 69.1 % (43.0-81.0); PLATELET COUNT (AUTO) 80 /CMM (150-450); RED BLOOD CELL COUNT(AUTO) 3.12 MIL/uL (4.5-6.0); WHITE BLOOD COUNT (AUTO) 7.1 K/uL (4.3-11.0)
--- NOTE | 2020-04-08 06:56 | NUR ---
RN NOTES PATIENT REMAINS IN BED, AWAKE, A/O X1. PATIENT ON OXYGEN THERAPY AT 2 LPM VIA NASAL CANNULA; BREATHING EVEN AND UNLABORED. NO COMPLAINS OF PAIN DURING SHIFT. R WRIST G # 24 IV ACCESS PRESENT AND INFUSING D5NS @75 MLS/HR. PT S/P BLOOD TRANSFUSION TOLERATED WELL.SAFETY PRECAUTIONS IN PLACE; BED IN LOW POSITION AND LOCKED, RAILS UP X2, CALL LIGHT WITHIN REACH. WILL ENDORSE CARE TO DAY SHIFT.
--- NOTE | 2020-04-08 07:30 | NUR ---
RN MS NOTES PT IN BED, ASLEEP, EASY TO AROUSE, NO SIGN OF PAIN OR DISTRESS, CALL LIGHT WITHIN REACH, IV FLUIDS INFUSING WELL, KEPT WARM AND COMFORTABLE.
[2020-04-08] MEDS: METOPROLOL TARTRATE 25 MG TABLET PO SCH ×2 (08:40→17:09)
[2020-04-08] MEDS: FERROUS SULFATE (325 MG) 325 MG/TAB TABLET PO SCH ×2 (08:40→17:08)
[2020-04-08] MEDS: DOCUSATE SODIUM 100 MG CAPSULE PO SCH ×2 (08:40→17:09)
[2020-04-08] MEDS: ASPIRIN 81 MG TAB.CHEW PO SCH (08:40)
[2020-04-08] MEDS: MUPIROCIN OINT 2% 22 GM TUBE NS SCH ×2 (08:44→22:26)
[2020-04-08 09:10] LABS: CALCIUM, SERUM 7.8 mg/dL (8.5-10.1); CREATININE 1.1 mg/dL (0.6-1.3); MAGNESIUM 1.9 mg/dL (1.8-2.4); PHOSPHORUS 2.3 mg/dL (2.5-4.9); POTASSIUM 3.6 mmol/L (3.5-5.1)
[2020-04-08 09:47] LABS: BAND % (MANUAL) 4 % (0.0-5.0); LYMPHOCYTES % (MANUAL) 16 % (16-48); MONOCYTES % (MANUAL) 6 % (0-11.0); NEUTROPHILS % (MANUAL) 74 (42-76)
[2020-04-08] MEDS ORDERED: NEUTRA PHOS 1 POWD.PACKET PO ONE (14:00)
[2020-04-08] MEDS: IV D5/ 0.9% NACL 1,000 ML IV PRN (17:16)
--- NOTE | 2020-04-08 18:47 | NUR ---
RN MS NOTES PT IN BED, RESTING, ALERT TO SELF, VERBALLY RESPONSIVE AT TIMES, NO SIGN OF PAIN, NOT IN DISTRESS, CALL LIGHT WITHIN REACH, SEEN BY DR. SIU TODAY, ORDERED FOR MIDLINE PLACEMENT, PT TOLERATED PROCEDURE WELL, IV FLUIDS INFUSING WELL, PM MEDS GIVEN ORDERED, PM CARE PROVIDED, PT WITH ADEQUATE URINE OUTPUT, BLADDER SCAN PERFORMED ORDERED, NO URINE RETENTION NOTED, SEEN BY SPEECH THERAPIST, RECOMMENDED PUREE DIET, ALL NEEDS ATTENDED.
--- NOTE | 2020-04-08 20:35 | NUR ---
MS UPPER LEATHER SORTER INITIAL NOTES Received report from am nurse. Pt is resting in bed comfortably but arousable to touch. Not in any acute distress noted. Pt is alert and orientedX2. Respiration is 2 L NC with O2 sat is 100%. Still on IVF of D5 1/2 NS@ 75 ml/hr infusing on his right upper arm midline. Kept him warm and comfortable at all times. Safety precautions is maintained. Bed at low position, brakes locked, side rails upX2 and call light is within reach. Will continue to monitor.
[2020-04-08] MEDS: CEFTRIAXONE 1 G in IV D5W 50 ML IV SCH (21:40)
[2020-04-09 06:36] LABS: BASOPHILS % (AUTO) 0.3 % (0.0-2.0); EOSINOPHILS % (AUTO) 0.1 % (0.0-6.0); HEMATOCRIT 23 % (39-51); HEMOGLOBIN 7.5 g/dL (13.5-17.5); LYMPHOCYTES # (AUTO) 2.4 /CMM (0.8-4.8); LYMPHOCYTES % (AUTO) 32.1 % (20.0-44.0); MEAN CORPUSCULAR HGB CONC 32 g/dl (31.0-36.0); MEAN CORPUSCULAR VOLUME 75 fL (80-96); MONOCYTES # (AUTO) 0.7 /CMM (0.1-1.30); MONOCYTES % (AUTO) 8.9 % (2.0-12.0); NEUTROPHILS # (AUTO) 4.4 /CMM (1.8-8.9); NEUTROPHILS % (AUTO) 58.6 % (43.0-81.0); PLATELET COUNT (AUTO) 74 /CMM (150-450); RED BLOOD CELL COUNT(AUTO) 3.11 MIL/uL (4.5-6.0); WHITE BLOOD COUNT (AUTO) 7.5 K/uL (4.3-11.0)
[2020-04-09 06:54] LABS: CALCIUM, SERUM 7.8 mg/dL (8.5-10.1); CREATININE 1.2 mg/dL (0.6-1.3); PHOSPHORUS 2.3 mg/dL (2.5-4.9); POTASSIUM 3.6 mmol/L (3.5-5.1)
[2020-04-09] MEDS: IV D5/ 0.9% NACL 1,000 ML IV PRN (07:34)
--- NOTE | 2020-04-09 07:39 | NUR ---
agricultural produce commission agent closing notes pt back to sleep after morning care done , not in any acute distress, kept him warm and comfortable at all times. stable nadja the night all needs met. endorse to am nurse.
[2020-04-09] MEDS: DOCUSATE SODIUM 100 MG CAPSULE PO SCH ×2 (08:05→16:13)
[2020-04-09] MEDS: FERROUS SULFATE (325 MG) 325 MG/TAB TABLET PO SCH ×2 (08:05→16:13)
[2020-04-09] MEDS: METOPROLOL TARTRATE 25 MG TABLET PO SCH ×2 (08:05→16:13)
[2020-04-09] MEDS: ASPIRIN 81 MG TAB.CHEW PO SCH (08:05)
[2020-04-09 08:07] LABS: IMMUNOGLOBULIN A, SERUM 152 mg/dL (61-437); IMMUNOGLOBULIN G, SERUM 1384 mg/dL (603-1613); IMMUNOGLOBULIN M, SERUM 66 mg/dL (15-143)
[2020-04-09] MEDS: MUPIROCIN OINT 2% 22 GM TUBE NS SCH ×2 (08:07→22:24)
[2020-04-09 08:33] VITALS: BP 104/78
[2020-04-09] MEDS ORDERED: Sodium Phosphate 15 MMOL in IV NS 0.9% 245 ML IV SCH (13:00)
[2020-04-09 16:00] VITALS: BP 127/83
--- NOTE | 2020-04-09 18:43 | NUR ---
MS/RN - End of shift summary Patient is alert and oriented x 1-2, confused and forgetful at times, reality orientation given, afebrile, denies pain, no apparent distress, phosphorus replacement given. Patient with no episode of urinary retention, bladder scan done at 14:00, noted with 143 ml. Fall and aspiration precautions maintained. Will continue with current plan of care.
--- NOTE | 2020-04-09 19:59 | NUR ---
ms harsh initial notes received report from am nurse and seen pt in bed awake and alert on semi fowlers position with side rails x2 up. he has Na Phospate still infusing at this time. no signs of any acute distress noted. he has O2 at 2 liters via nasal canula . no SOB noted. denies any pain or any discomfort. kept him warm and comfortable at all times. place call light at reach. bed in low and lock in position with side rails x2 up . bed alarm set for pt safety. will continue monitoring.
[2020-04-09 20:00] VITALS: BP 138/76
[2020-04-09] MEDS: CEFTRIAXONE 1 G in IV D5W 50 ML IV SCH (21:05)
[2020-04-09] MEDS: ACETAMINOPHEN 325 MG TABLET PO PRN (22:24)
--- NOTE | 2020-04-10 03:51 | NUR ---
SYSTEMS TECHNOLOGIST INITIAL NOTES PT SLEEPING COMFORTABLY IN BED WITHOUT ANY DISTRESS NOTED.
--- NOTE | 2020-04-10 07:15 | NUR ---
MS RN NOTES PATIENT IN BED ALERT ORIENTED X 2. . NO ACUTE DISTRESS NOTED. BREATHING UNLABORED. IV ACCESS PATENT AND INTACT, NO REDNESS, NO SWELLING NOTED. .SAFETY MEASURES IN PLACE. CALL LIGHT WITHIN REACH. WILL CONTINUE TO MONITOR ACCORDINGLY.
--- NOTE | 2020-04-10 07:41 | NUR ---
ms broom man closing notes' pt resting at this time after morning care done. Stable troughout the night and all due meds given. not in any discomfort. kept him warm and comfortable at all times. will endorse to am nurse.
[2020-04-10 07:51] LABS: BASOPHILS % (AUTO) 0.4 % (0.0-2.0); EOSINOPHILS % (AUTO) 0.2 % (0.0-6.0); HEMATOCRIT 22 % (39-51); HEMOGLOBIN 7.1 g/dL (13.5-17.5); LYMPHOCYTES # (AUTO) 1.2 /CMM (0.8-4.8); LYMPHOCYTES % (AUTO) 19.1 % (20.0-44.0); MEAN CORPUSCULAR HGB CONC 32 g/dl (31.0-36.0); MEAN CORPUSCULAR VOLUME 74 fL (80-96); MONOCYTES # (AUTO) 0.6 /CMM (0.1-1.30); MONOCYTES % (AUTO) 10.1 % (2.0-12.0); NEUTROPHILS # (AUTO) 4.3 /CMM (1.8-8.9); NEUTROPHILS % (AUTO) 70.2 % (43.0-81.0); PLATELET COUNT (AUTO) 61 /CMM (150-450); RED BLOOD CELL COUNT(AUTO) 3.01 MIL/uL (4.5-6.0); WHITE BLOOD COUNT (AUTO) 6.1 K/uL (4.3-11.0)
[2020-04-10 08:14] LABS: CALCIUM, SERUM 7.6 mg/dL (8.5-10.1); CREATININE 1.1 mg/dL (0.6-1.3); PHOSPHORUS 2.8 mg/dL (2.5-4.9); POTASSIUM 3.4 mmol/L (3.5-5.1)
[2020-04-10 08:36] VITALS: BP 109/73
[2020-04-10] MEDS: ASPIRIN 81 MG TAB.CHEW PO SCH (08:54)
[2020-04-10] MEDS: FERROUS SULFATE (325 MG) 325 MG/TAB TABLET PO SCH ×2 (08:55→17:43)
[2020-04-10] MEDS: DOCUSATE SODIUM 100 MG CAPSULE PO SCH ×2 (08:55→17:43)
[2020-04-10] MEDS: METOPROLOL TARTRATE 25 MG TABLET PO SCH ×2 (08:58→17:43)
[2020-04-10] MEDS: MUPIROCIN OINT 2% 22 GM TUBE NS SCH ×2 (08:58→21:09)
[2020-04-10] MEDS: IV D5/ 0.9% NACL 1,000 ML IV PRN (10:00)
[2020-04-10] MEDS ORDERED: POTASSIUM CHLORIDE 20 MEQ TAB.PRT.SR PO ONE (10:15)
--- NOTE | 2020-04-10 10:15 | NUR ---
MS RN NOTES K DUR TABLET NOT ADMINISTERED PATIENT ON PUREED DIET SPOKE WITH CURTIS MEDICATION WILL BE CONVERTED TO POWDER FORM
[2020-04-10] MEDS ORDERED: POTASSIUM CHLORIDE 20 MEQ POWDER PACKET PO ONE (11:30)
[2020-04-10] MEDS ORDERED: IOHEXOL-300 100 ML VIAL IV ONE (13:47)
[2020-04-10] MEDS ORDERED: IV NS 0.9% 250 ML BAG IV ONE (13:48)
[2020-04-10 16:26] VITALS: BP 135/79
--- NOTE | 2020-04-10 19:00 | NUR ---
MS RN NOTES PATIENT IN BED ALERT ORIENTED X 2. NO ACUTE DISTRESS NOTED. BREATHING UNLABORED. IV ACCESS PATENT AND INTACT, NO REDNESS, NO SWELLING NOTED. TURNED AND REPOSITIONED EVERY 2 HOURS AND WHEN NEEDED. NEEDS ATTENDED AND ANTICIPATED .SAFETY MEASURES IN PLACE. CALL LIGHT WITHIN REACH. WILL ENDORSE TO NIGHT NURSE FOR CONTINUITY OF CARE.
--- NOTE | 2020-04-10 19:30 | NUR ---
MS/RN OPENING NOTES RECEIVED PATIENT IN BED RESTING. PATIENT IS ALERT AND ORIENTED X 1. PATIENT BREATHING IS EVEN AND UNLABORED. PATIENT HAS NO SIGNS OF SOB OR RESPIRATORY DISTRESS NOTED. PATIENT IN COMFORTABLE POSITION. PATIENT HAS IV ACCESS IN PLACE FLUSHING WELL. SAFETY MEASURES ARE IN PLACE, BED IS LOCKED AND PLACED IN THE LOW POSITION, SIDE RAILS UP X 3 CALL LIGHT IS WITHIN REACH. WILL CONTINUE TO MONITOR THROUGH OUT SHIFT.
[2020-04-10 20:00] VITALS: BP 148/78
[2020-04-10] MEDS: CEFEPIME 2 GM in IV D5W 100 ML IV SCH (20:58)
[2020-04-10] MEDS ORDERED: VANCOMYCIN 1 GM in IV D5W 250ml IV ONE (21:00)
[2020-04-10] MEDS ORDERED: VANCOMYCIN 500 MG in IV D5W 100ml IV ONE (22:00)
[2020-04-11] VITALS (9 sets, daily range): BP systolic 113–132; BP diastolic 53–98
[2020-04-11] MEDS: IV D5/ 0.9% NACL 1,000 ML IV PRN ×2 (05:30→19:31)
[2020-04-11 06:12] LABS: BASOPHILS % (AUTO) 0.3 % (0.0-2.0); EOSINOPHILS % (AUTO) 0.2 % (0.0-6.0); HEMATOCRIT 21 % (39-51); LYMPHOCYTES # (AUTO) 1.6 /CMM (0.8-4.8); MEAN CORPUSCULAR HGB CONC 32 g/dl (31.0-36.0); MEAN CORPUSCULAR VOLUME 74 fL (80-96); MONOCYTES # (AUTO) 0.6 /CMM (0.1-1.30); MONOCYTES % (AUTO) 9.5 % (2.0-12.0); NEUTROPHILS # (AUTO) 4.4 /CMM (1.8-8.9); PLATELET COUNT (AUTO) 71 /CMM (150-450); RED BLOOD CELL COUNT(AUTO) 2.86 MIL/uL (4.5-6.0); WHITE BLOOD COUNT (AUTO) 6.6 K/uL (4.3-11.0)
[2020-04-11 06:46] LABS: HEMOGLOBIN 6.8 g/dL (13.5-17.5)
--- NOTE | 2020-04-11 06:51 | NUR ---
MS/RN NOTES LAB PHONE CALL CRITICAL VALUE HGB 6.8 HCT 21 EPIC PHONE CALL PAGE TO GANG WORKER .
--- NOTE | 2020-04-11 06:54 | NUR ---
MS/RN CLOSING NOTES PATIENT IN BED RESTING. PATIENT IS ALERT AND ORIENTED X 2. PATIENT BREATHING IS EVEN AND UNLABORED. PATIENT HAS NO SIGNS OF SOB OR RESPIRATORY DISTRESS NOTED. PATIENT I PLACED IN COMFORTABLE POSITION. PATIENT HAS IV ACCESS IN PLACE FLUSHING WELL LUIS MIDLINE #18G. ASPIRATION PRECAUTIONS ARE IN PLACE. ALL NEEDS HAVE BEEN MET DURING SHIFT. SAFETY MEASURES ARE IN PLACE, BED IS LOCKED AND PLACED IN THE LOW POSITION, SIDE RAILS UP X 3 CALL LIGHT IS WITHIN REACH. WILL ENDORSE CARE TO DAY SHIFT NURSE.
--- NOTE | 2020-04-11 07:02 | NUR ---
RN OPENING NOTE RECEIVED PT RESTING COMFORTABLY IN BED AT THIS TIME. AOX1-2. NO SOB NOTED, NO S/S OF ANY ACUTE DISTRESS NOTED, NO C/O PAIN AT THIS TIME. PT NOTED ON OXYGEN @2LPM VIA NC SATURATING AT 98%. LUIS MIDLINE, INTACT PATENT AND FLUSHING WELL. ASPIRATIONS AND SAFETY PRECAUTIONS IN PLACE AND MAINTAINED AT ALL TIMES. BED IN LOWEST LOCKED POSITION, SIDE RAILS UP, HOB ELEVATED, TABLE AND CALL LIGHT WITHIN REACH. WILL CONTINUE TO MONITOR.
[2020-04-11 07:23] LABS: CALCIUM, SERUM 7.8 mg/dL (8.5-10.1); CREATININE 1.2 mg/dL (0.6-1.3); MAGNESIUM 1.6 mg/dL (1.8-2.4); PHOSPHORUS 2.5 mg/dL (2.5-4.9); POTASSIUM 3.9 mmol/L (3.5-5.1)
[2020-04-11] MEDS: CEFEPIME 2 GM in IV D5W 100 ML IV SCH ×2 (08:14→19:49)
[2020-04-11] MEDS: FERROUS SULFATE (325 MG) 325 MG/TAB TABLET PO SCH ×2 (08:27→16:59)
[2020-04-11] MEDS: DOCUSATE SODIUM 100 MG CAPSULE PO SCH ×2 (08:27→17:00)
[2020-04-11] MEDS: ASPIRIN 81 MG TAB.CHEW PO SCH (08:27)
[2020-04-11] MEDS: MUPIROCIN OINT 2% 22 GM TUBE NS SCH ×2 (08:28→21:10)
[2020-04-11] MEDS: METOPROLOL TARTRATE 25 MG TABLET PO SCH ×2 (08:38→17:00)
[2020-04-11] MEDS ORDERED: VANCOMYCIN 1 GM in IV D5W 250ml IV SCH (09:00)
[2020-04-11] MEDS ORDERED: ACETAMINOPHEN 325 MG TABLET PO ONE (09:30)
[2020-04-11] MEDS ORDERED: diphenhydrAMINE HCL 50 MG/ML VIAL IV ONE (09:30)
[2020-04-11] MEDS: Magnesium 1GM/D5W 100ML PREMIX 100 ML IV SCH ×2 (10:01→11:07)
[2020-04-11 10:29] LABS: BAND % (MANUAL) 4 % (0.0-5.0); LYMPHOCYTES % (MANUAL) 18 % (16-48); MONOCYTES % (MANUAL) 6 % (0-11.0); NEUTROPHILS % (MANUAL) 72 (42-76)
[2020-04-11] MEDS ORDERED: VANCOMYCIN 1.25 GM in IV D5W 250 ML IV SCH (12:00)
--- NOTE | 2020-04-11 15:16 | NUR ---
PT ONGOING BLOOD TRANSFUSION NOW, PT EDUCATION PROVIDED TO REPORT ANY ADVERSE REACTION OF TRANSFUSION (CHILLS, BACK PAIN, HIVES, ITCHES, HEADACHE). PT REMAINS AFEBRILE. PRE-TRANSFUSION VITAL SIGNS, BP 120/89, HR 118, RR 18, T 98.2, SPO2 98. WILL CONTINUE TO MONITOR
--- NOTE | 2020-04-11 15:31 | NUR ---
PT ONGOING BLOOD TRANSFUSION NOW, PT EDUCATION PROVIDED TO REPORT ANY ADVERSE REACTION OF TRANSFUSION (CHILLS, BACK PAIN, HIVES, ITCHES, HEADACHE). PT REMAINS AFEBRILE. VITAL SIGNS, BP 119/65, HR 113, RR 18, T 98.0, SPO2 99. WILL CONTINUE TO MONITOR
--- NOTE | 2020-04-11 16:01 | NUR ---
PT ONGOING BLOOD TRANSFUSION NOW, PT EDUCATION PROVIDED TO REPORT ANY ADVERSE REACTION OF TRANSFUSION (CHILLS, BACK PAIN, HIVES, ITCHES, HEADACHE). PT REMAINS AFEBRILE. VITAL SIGNS, BP 1126/70, HR 116, RR 20, T 98.4, SPO2 97. WILL CONTINUE TO MONITOR Addendum: 04/11/20 at 1706 by CORAZON LIZAMA RN PT ONGOING BLOOD TRANSFUSION NOW, PT EDUCATION PROVIDED TO REPORT ANY ADVERSE REACTION OF TRANSFUSION (CHILLS, BACK PAIN, HIVES, ITCHES, HEADACHE). PT REMAINS AFEBRILE. VITAL SIGNS, BP 126/70, HR 116, RR 20, T 98.4, SPO2 97. WILL CONTINUE TO MONITOR
--- NOTE | 2020-04-11 17:01 | NUR ---
PT ONGOING BLOOD TRANSFUSION NOW, PT EDUCATION PROVIDED TO REPORT ANY ADVERSE REACTION OF TRANSFUSION (CHILLS, BACK PAIN, HIVES, ITCHES, HEADACHE). PT REMAINS AFEBRILE. VITAL SIGNS, BP 117/53 HR 109, RR 18, T 97.9, SPO2 99. WILL CONTINUE TO MONITOR
--- NOTE | 2020-04-11 18:06 | NUR ---
PT ONGOING BLOOD TRANSFUSION NOW, NO ADVERSE REACTION OF TRANSFUSION (CHILLS, BACK PAIN, HIVES, ITCHES, HEADACHE). PT REMAINS AFEBRILE. VITAL SIGNS, BP 132/68 HR 103, RR 18, T 98.3, SPO2 98. WILL CONTINUE TO MONITOR
--- NOTE | 2020-04-11 18:22 | NUR ---
BLOOD TRANSFUSION COMPLETED AT THIS TIME. NO ADVERSE REACTIONS TO TRANSFUSION NOTED, NO C/O CHILLS, BACK ACHE, HIVES. PT REMAINED AFEBRILE. VS, BP 129/69 HR 93, RR 20, T 98.0, TEMP 99%. WILL CONTINUE WITH PLAN OF CARE
--- NOTE | 2020-04-11 19:00 | NUR ---
RN CLOSING NOTES PT AWAKE IN BED AT THIS TIME. PT REMAINED STABLE THROUGHOUT SHIFT. PT REMAINED STABLE ON OXYGEN @2LPM VIA NC SATURATING @ 97% AT THIS TIME. ALL CARE, NEED, MEDICATIONS AND TREATMENT ADMINISTERED ANTICIPATED PER ORDER. PT REPOSITIONED Q2HR AND PRN. LINEN KEPT CLEAN. ASPIRATION, RESPIRATION AND SAFETY PRECAUTION IN PLACE AND MAINTAINED AT ALL TIMES. BED IN LOWEST LOCKED POSITION, HOB ELEVATED, SIDE RAILS UP X 2, CALL LIGHT AND TABLE WITHIN REACH. WILL ENDORSE TO EXTERNAL GRINDER TOOL NURSE FOR GIANCARLO
--- NOTE | 2020-04-11 19:30 | NUR ---
MS/RN OPENING NOTES RECEIVED PATIENT IN BED RESTING. PATIENT IS ALERT AND ORIENTED X 2. PATIENT BREATHING IS EVEN AND UNLABORED. PATIENT HAS NO SIGNS OF SOB OR RESPIRATORY. PATIENT HAS IV ACCESS IN PLACE FLUSHING WELL LUIS MIDLINE #18G. ASPIRATION PRECAUTIONS ARE IN PLACE. SAFETY MEASURES ARE IN PLACE, BED IS LOCKED AND PLACED IN THE LOW POSITION, SIDE RAILS UP X 3 CALL LIGHT IS WITHIN REACH. WILL MONITOR THROUGH OUT SHIFT.
[2020-04-11] MEDS: VANCOMYCIN 0.75 GM in IV D5W 250 ML IV SCH (21:10)
--- NOTE | 2020-04-12 06:20 | NUR ---
MS/RN CLOSING NOTES PATIENT IN BED RESTING. PATIENT IS ALERT AND ORIENTED X 1-2. PATIENT BREATHING IS EVEN AND UNLABORED. PATIENT HAS NO SIGNS OF SOB OR RESPIRATORY. PATIENT HAS IV ACCESS IN PLACE FLUSHING WELL LUIS MIDLINE #18G. ASPIRATION PRECAUTIONS ARE IN PLACE. ALL NEEDS HAVE BEEN MET. SAFETY MEASURES ARE IN PLACE, BED IS LOCKED AND PLACED IN THE LOW POSITION, SIDE RAILS UP X 3 CALL LIGHT IS WITHIN REACH. WILL ENDORSE CARE TO DAY SHIFT NURSE.
[2020-04-12 07:01] LABS: BASOPHILS % (AUTO) 0.5 % (0.0-2.0); EOSINOPHILS % (AUTO) 0.2 % (0.0-6.0); HEMATOCRIT 27 % (39-51); HEMOGLOBIN 8.6 g/dL (13.5-17.5); LYMPHOCYTES # (AUTO) 2.3 /CMM (0.8-4.8); LYMPHOCYTES % (AUTO) 26.9 % (20.0-44.0); MEAN CORPUSCULAR HGB CONC 32 g/dl (31.0-36.0); MEAN CORPUSCULAR VOLUME 76 fL (80-96); MONOCYTES # (AUTO) 0.7 /CMM (0.1-1.30); MONOCYTES % (AUTO) 8.3 % (2.0-12.0); NEUTROPHILS # (AUTO) 5.4 /CMM (1.8-8.9); NEUTROPHILS % (AUTO) 64.1 % (43.0-81.0); PLATELET COUNT (AUTO) 77 /CMM (150-450); RED BLOOD CELL COUNT(AUTO) 3.49 MIL/uL (4.5-6.0); WHITE BLOOD COUNT (AUTO) 8.4 K/uL (4.3-11.0)
[2020-04-12 07:32] LABS: CARBON DIOXIDE 20 mmol/L (21-32); CHLORIDE 110 mmol/L (98-107); CREATININE 1.2 mg/dL (0.6-1.3); GLUCOSE 105 mg/dL (74-106); MAGNESIUM 2.3 mg/dL (1.8-2.4); POTASSIUM 3.7 mmol/L (3.5-5.1); SODIUM SERUM 139 mmol/L (136-145); UREA NITROGEN, BLOOD 19 mg/dL (7-18)
[2020-04-12 07:58] LABS: PROSTATE SPECIFIC ANTIGEN SCR 2.57 ng/mL (0.00-4.00)
--- NOTE | 2020-04-12 08:00 | NUR ---
RN OPENING NOTE PT IS A/O X2. ABLE TO REQUEST NEEDS TO NURSES. CURRENTLY ON 2L O2 VAI NC. NO RESPIRATORY DISTRESS PRESENT. V/S STABLE. CURRENTLY INCONTINENT. ON BEDREST. SKIN IS INTACT. CURRENTLY ON PUREE CARDIAC DIET. HL PRESENT IN R UPPER ARM. SAFETY MEASURES IN PLACE. SIDE RAILS RAISED. CALL LIGHT WITHIN REACH. WILL CONTINUE TO MONITOR.
[2020-04-12] MEDS: FERROUS SULFATE (325 MG) 325 MG/TAB TABLET PO SCH ×2 (08:37→16:25)
[2020-04-12] MEDS: METOPROLOL TARTRATE 25 MG TABLET PO SCH ×2 (08:37→16:25)
[2020-04-12] MEDS: DOCUSATE SODIUM 100 MG CAPSULE PO SCH ×2 (08:37→16:25)
[2020-04-12] MEDS: ASPIRIN 81 MG TAB.CHEW PO SCH (08:37)
[2020-04-12] MEDS: CEFEPIME 2 GM in IV D5W 100 ML IV SCH ×2 (08:38→20:44)
[2020-04-12] MEDS: MUPIROCIN OINT 2% 22 GM TUBE NS SCH ×2 (09:00→21:23)
[2020-04-12] MEDS: VANCOMYCIN 0.75 GM in IV D5W 250 ML IV SCH ×2 (10:23→21:23)
[2020-04-12 16:00] VITALS: BP 108/73
--- NOTE | 2020-04-12 17:00 | NUR ---
RN NOTE SUCTIONED 200 CC OF FLUID FROM PT'S MOUTH VIA YANKAUER. MD NOTIFIED. PT PLACED ON NPO STATUS. PO MEDS NOT GIVEN. V/S STABLE.
--- NOTE | 2020-04-12 19:30 | NUR ---
RN CLOSING NOTE PT IS A/O X2. ABLE TO REQUEST NEEDS TO NURSES. CURRENTLY ON 3L O2 VIA NC. NO RESPIRATORY DISTRESS PRESENT. PRODUCTIVE COUGHS PRESENT. V/S STABLE. CURRENTLY INCONTINENT. ON BEDREST. SKIN IS INTACT. CURRENTLY NPO. HL PRESENT IN R UPPER ARM. SAFETY MEASURES IN PLACE. SIDE RAILS RAISED. CALL LIGHT WITHIN REACH. ROUTINE MEDS GIVEN. REPORT GIVEN TO NIGHT NURSE.
--- NOTE | 2020-04-12 19:30 | NUR ---
MS/RN OPENING NOTES PATIENT IN BED RESTING. PATIENT IS ALERT AND ORIENTED X 1-2. PATIENT BREATHING IS EVEN AND UNLABORED. PATIENT HAS IV ACCESS IN PLACE FLUSHING WELL LUIS MIDLINE #18G. ASPIRATION PRECAUTIONS ARE IN PLACE. SAFETY MEASURES ARE IN PLACE, BED IS LOCKED AND PLACED IN THE LOW POSITION, SIDE RAILS UP X 3 CALL LIGHT IS WITHIN REACH. WILL CONTINUE TO MONITOR.
--- NOTE | 2020-04-12 20:30 | NUR ---
MS/RN NOTES PATIENT DEEP SUCTION BY RT. 250CC FLUID REMOVED DURING SUCTION. NO SIGNS OF ACTIVE BLEEDING. PATIENT IS STABLE. WILL CONTINUE TO MONITOR.
[2020-04-12 21:36] VITALS: BP 124/100
[2020-04-13 06:49] LABS: BASOPHILS % (AUTO) 0.5 % (0.0-2.0); EOSINOPHILS % (AUTO) 0.2 % (0.0-6.0); HEMATOCRIT 25 % (39-51); HEMOGLOBIN 8.1 g/dL (13.5-17.5); LYMPHOCYTES # (AUTO) 1.9 /CMM (0.8-4.8); LYMPHOCYTES % (AUTO) 20.1 % (20.0-44.0); MEAN CORPUSCULAR HGB CONC 33 g/dl (31.0-36.0); MEAN CORPUSCULAR VOLUME 76 fL (80-96); MONOCYTES # (AUTO) 0.9 /CMM (0.1-1.30); MONOCYTES % (AUTO) 9.6 % (2.0-12.0); NEUTROPHILS # (AUTO) 6.4 /CMM (1.8-8.9); NEUTROPHILS % (AUTO) 69.6 % (43.0-81.0); PLATELET COUNT (AUTO) 96 /CMM (150-450); RED BLOOD CELL COUNT(AUTO) 3.26 MIL/uL (4.5-6.0); WHITE BLOOD COUNT (AUTO) 9.2 K/uL (4.3-11.0)
[2020-04-13 07:13] LABS: CALCIUM, SERUM 7.7 mg/dL (8.5-10.1); CREATININE 1.3 mg/dL (0.6-1.3); MAGNESIUM 2.1 mg/dL (1.8-2.4); PHOSPHORUS 2.5 mg/dL (2.5-4.9); POTASSIUM 3.2 mmol/L (3.5-5.1)
--- NOTE | 2020-04-13 07:30 | NUR ---
MS/RN CLOSING NOTES PATIENT IN BED RESTING. PATIENT IS ALERT AND ORIENTED X 1-2. PATIENT BREATHING IS EVEN AND UNLABORED. PATIENT HAS IV ACCESS IN PLACE FLUSHING WELL LUIS MIDLINE #18G. ASPIRATION PRECAUTIONS ARE IN PLACE. SUCTIONED PRN. ALL NEEDS MET. SAFETY MEASURES ARE IN PLACE, BED IS LOCKED AND PLACED IN THE LOW POSITION, SIDE RAILS UP X 3 CALL LIGHT IS WITHIN REACH. WILL ENDORSE TO DAY SHIFT.
[2020-04-13 07:33] LABS: LYMPHOCYTES % (MANUAL) 18 % (16-48); MONOCYTES % (MANUAL) 7 % (0-11.0); NEUTROPHILS % (MANUAL) 75 (42-76)
[2020-04-13 08:00] VITALS: BP 141/96
--- NOTE | 2020-04-13 08:00 | NUR ---
RN OPENING NOTE PT IS A/O X2. ABLE TO REQUEST NEEDS TO NURSES. CURRENTLY ON 2L O2 VIA NC. NO RESPIRATORY DISTRESS PRESENT. V/S STABLE. CURRENTLY INCONTINENT. ON BEDREST. SKIN IS INTACT. CURRENTLY ON NPO. HL PRESENT IN R UPPER ARM. SAFETY MEASURES IN PLACE. SIDE RAILS RAISED. CALL LIGHT WITHIN REACH. WILL CONTINUE TO MONITOR.
[2020-04-13] MEDS: FERROUS SULFATE (325 MG) 325 MG/TAB TABLET PO SCH ×3 (09:00→17:00)
[2020-04-13] MEDS: ASPIRIN 81 MG TAB.CHEW PO SCH ×2 (09:00→09:22)
[2020-04-13] MEDS: METOPROLOL TARTRATE 25 MG TABLET PO SCH ×3 (09:00→17:00)
[2020-04-13] MEDS: DOCUSATE SODIUM 100 MG CAPSULE PO SCH ×3 (09:00→17:00)
[2020-04-13] MEDS: MUPIROCIN OINT 2% 22 GM TUBE NS SCH ×2 (09:22→21:35)
[2020-04-13] MEDS: CEFEPIME 2 GM in IV D5W 100 ML IV SCH ×2 (09:23→19:43)
[2020-04-13] MEDS: VANCOMYCIN 0.75 GM in IV D5W 250 ML IV SCH ×2 (10:25→21:00)
[2020-04-13 11:06] LABS: *ANA ANTI-CENTROMERE B AB <0.2 AI (0.0-0.9); *ANA ANTI-DNA(DS) AB, QN <1 IU/mL (0-9); *ANA ANTI-JO-1 <0.2 AI (0.0-0.9); *ANA ANTICHROMATIN ANTIBODY <0.2 AI (0.0-0.9); *ANA RNP ANTIBODIES <0.2 AI (0.0-0.9); *ANA SJOGREN'S ANTI-SS-A <0.2 AI (0.0-0.9); *ANA SJOGREN'S ANTI-SS-B <0.2 AI (0.0-0.9); *ANAANTI-SCLERODERMA-70 AB <0.2 AI (0.0-0.9); *ANASMITH AB <0.2 AI (0.0-0.9)
[2020-04-13] MEDS: IPRATROPIUM NEB FS 0.5 MG/2.5 ML AMPUL.NEB NEB SCH ×3 (11:30→19:55)
[2020-04-13] MEDS: POTASSIUM CL. PREMIX PERIPHER. 50 ML IV SCH ×5 (11:39→19:41)
[2020-04-13] MEDS ORDERED: POTASSIUM CL. PREMIX PERIPHER. 50 ML ONE ×3 (15:24→20:05)
[2020-04-13] MEDS: ACETYLCYSTEINE 20% SOLN 800 MG/4 ML VIAL NEB SCH ×2 (15:47→23:38)
[2020-04-13 17:39] VITALS: BP 158/87
--- NOTE | 2020-04-13 19:29 | NUR ---
RN CLOSING NOTE PT IS A/O X2. ABLE TO REQUEST NEEDS TO NURSES. CURRENTLY ON 2L O2 VIA NC. NO RESPIRATORY DISTRESS PRESENT. PRODUCTIVE COUGHS PRESENT. V/S STABLE. CURRENTLY INCONTINENT. ON BEDREST. SKIN IS INTACT. CURRENTLY NPO. HL PRESENT IN R UPPER ARM. SAFETY MEASURES IN PLACE. SIDE RAILS RAISED. CALL LIGHT WITHIN REACH. ROUTINE MEDS GIVEN. REPORT GIVEN TO NIGHT NURSE.
--- NOTE | 2020-04-13 19:30 | NUR ---
RECEIVED EYES OPEN NONVERBAL YELLS OUT WHEN TOUCHED AND REPOSITIONED DEEP SUTIONED WHITE FROTHY PHYLEM OBTAIED SPECIMEN SENT TO THE LAB INCONTINENT UA
[2020-04-13 20:00] VITALS: BP 124/78
[2020-04-13] MEDS ORDERED: MEROPENEM 500 MG in IV NS 0.9% 50 ML IV SCH (21:00)
[2020-04-13] MEDS: MEROPENEM 1 G in IV NS 0.9% 100 ML IV SCH (21:32)
[2020-04-14] MEDS: IV D5/ 0.9% NACL 1,000 ML IV PRN (00:19)
--- NOTE | 2020-04-14 04:38 | NUR ---
CLOSING NOTES: ALERT WILL ANSWER SIMPLE QUESTION ALLOWS NURSE TO SUCTION HIM DONE FREQUENTLY REMAINS NPO ORDERED SPUTUM SENT ORDERED IMCONTINENT UA MOISTURE DAMAGE ON THE SCRUM AND BUTTOCKS MEPILEX AND ZGUARD SAT 94 - 98% 2 LITERS
--- NOTE | 2020-04-14 07:16 | NUR ---
RN NOTES PATIENT RESTING IN BED, ABLE TO BE AWAKENED. BREATHING EVEN AND UNLABORED, ON O2 AT 2LPM VIA NC. LUIS MIDLINE INTACT AND PATENT, IVF OF D5 NS @ 75 CC/HR INFUSING WELL. SAFETY MEASURES IN PLACE. WILL CONTINUE TO MONITOR.
[2020-04-14] MEDS: ACETYLCYSTEINE 20% SOLN 800 MG/4 ML VIAL NEB SCH ×3 (07:23→23:19)
[2020-04-14] MEDS: IPRATROPIUM NEB FS 0.5 MG/2.5 ML AMPUL.NEB NEB SCH ×4 (07:23→19:30)
[2020-04-14 07:44] LABS: BASOPHILS % (AUTO) 0.4 % (0.0-2.0); EOSINOPHILS % (AUTO) 0.2 % (0.0-6.0); HEMATOCRIT 22 % (39-51); HEMOGLOBIN 7.1 g/dL (13.5-17.5); LYMPHOCYTES # (AUTO) 1.1 /CMM (0.8-4.8); LYMPHOCYTES % (AUTO) 13.3 % (20.0-44.0); MEAN CORPUSCULAR HGB CONC 33 g/dl (31.0-36.0); MEAN CORPUSCULAR VOLUME 76 fL (80-96); MONOCYTES # (AUTO) 0.7 /CMM (0.1-1.30); MONOCYTES % (AUTO) 8.2 % (2.0-12.0); NEUTROPHILS # (AUTO) 6.5 /CMM (1.8-8.9); NEUTROPHILS % (AUTO) 77.9 % (43.0-81.0); PLATELET COUNT (AUTO) 97 /CMM (150-450); RED BLOOD CELL COUNT(AUTO) 2.87 MIL/uL (4.5-6.0); WHITE BLOOD COUNT (AUTO) 8.4 K/uL (4.3-11.0)
[2020-04-14 07:56] LABS: CALCIUM, SERUM 8.2 mg/dL (8.5-10.1); CREATININE 1.3 mg/dL (0.6-1.3); PHOSPHORUS 2.3 mg/dL (2.5-4.9); POTASSIUM 3.4 mmol/L (3.5-5.1)
[2020-04-14 08:00] VITALS: BP 95/76
[2020-04-14] MEDS: DOCUSATE SODIUM 100 MG CAPSULE PO SCH ×2 (08:24→16:58)
[2020-04-14] MEDS: METOPROLOL TARTRATE 25 MG TABLET PO SCH ×2 (08:24→16:59)
[2020-04-14] MEDS: ASPIRIN 81 MG TAB.CHEW PO SCH (08:24)
[2020-04-14] MEDS: FERROUS SULFATE (325 MG) 325 MG/TAB TABLET PO SCH ×2 (08:24→16:58)
[2020-04-14] MEDS: MUPIROCIN OINT 2% 22 GM TUBE NS SCH ×2 (08:24→22:34)
[2020-04-14] MEDS: MEROPENEM 1 G in IV NS 0.9% 100 ML IV SCH ×2 (09:30→22:35)
[2020-04-14] MEDS ORDERED: POTASSIUM CHLORIDE 20 MEQ TAB.PRT.SR PO SCH (10:00)
--- NOTE | 2020-04-14 10:33 | NUR ---
RN NOTES K-DUR CHANGED BY PHARMACY TO IV FORM BECAUSE PATIENT IS NPO
[2020-04-14] MEDS: POTASSIUM CL. PREMIX PERIPHER. 50 ML IV SCH ×2 (12:12→13:14)
[2020-04-14] MEDS: VANCOMYCIN 1 GM in IV D5W 250ml IV SCH (15:02)
[2020-04-14] MEDS ORDERED: NEUTRA PHOS 1 POWD.PACKET NG ONE (15:30)
[2020-04-14 16:00] VITALS: BP 139/78
[2020-04-14] MEDS ORDERED: Sodium Phosphate 15 MMOL in IV NS 0.9% 245 ML IV SCH (16:00)
--- NOTE | 2020-04-14 19:00 | NUR ---
RECEIVED IN BED 02 2L BREATHING EVEN AND UNLABORED LINO LIGHT WITHIN REACH SR UP FOR SAFETY WILL GIVE EYE CONTACT WHEN SHOULDER TOUCHED AND NAME SPOKEN
--- NOTE | 2020-04-14 19:16 | NUR ---
RN NOTES PATIENT IN BED RESTING, AWAKE AND RESPONSIVE. BREATHING EVEN AND UNLABORED, CONTINUES ON O2 AT 2LPM VIA NC, NO SOB NOTED. HOB ELEVATED. CURRENTLY NPO. ORAL SUCTIONING DONE PRN. LUIS MIDLINE INTACT AND PATENT, IVF OF D5 NS @ 75 CC/HR INFUSING WELL. SAFETY MEASURES MAINTAINED. ENDORSED TO PROMOTIONAL MARKETING AGENT RN FOR GIANCARLO.
[2020-04-14 20:00] VITALS: BP 128/99
[2020-04-14 20:41] VITALS: BP 128/99
--- NOTE | 2020-04-15 04:34 | NUR ---
ENDING NOTES: SUCTION THUR THE NIGHT NEEDED X1 FOR THROATY GURGLE. HOB KEPT ELEVATED ASP PRECAUTIONS REMAINS NPO INCONTINENT UA THRU THE NIGHT KEPT CLEAN AND DRY AND REPOSITIONED EASY TO REPOSITION PT ATTEMPTS TO HELP MEPILEX ON THE SACRUM AND ZGUARD USED FOR PERIAREA PROTECTION
[2020-04-15 07:07] LABS: BASOPHILS # (AUTO) 0.1 /CMM (0.0-0.2); BASOPHILS % (AUTO) 0.8 % (0.0-2.0); EOSINOPHILS % (AUTO) 0.2 % (0.0-6.0); HEMATOCRIT 26 % (39-51); HEMOGLOBIN 8.4 g/dL (13.5-17.5); LYMPHOCYTES # (AUTO) 2.6 /CMM (0.8-4.8); LYMPHOCYTES % (AUTO) 26.7 % (20.0-44.0); MEAN CORPUSCULAR HGB CONC 33 g/dl (31.0-36.0); MEAN CORPUSCULAR VOLUME 76 fL (80-96); MONOCYTES # (AUTO) 0.7 /CMM (0.1-1.30); MONOCYTES % (AUTO) 7.6 % (2.0-12.0); NEUTROPHILS # (AUTO) 6.3 /CMM (1.8-8.9); NEUTROPHILS % (AUTO) 64.7 % (43.0-81.0); PLATELET COUNT (AUTO) 110 /CMM (150-450); RED BLOOD CELL COUNT(AUTO) 3.36 MIL/uL (4.5-6.0); WHITE BLOOD COUNT (AUTO) 9.8 K/uL (4.3-11.0)
[2020-04-15 07:33] LABS: CALCIUM, SERUM 7.5 mg/dL (8.5-10.1); CREATININE 1.2 mg/dL (0.6-1.3); PHOSPHORUS 2.8 mg/dL (2.5-4.9); POTASSIUM 3.1 mmol/L (3.5-5.1)
--- NOTE | 2020-04-15 07:39 | NUR ---
MS/RN OPENING NOTES RECEIVED PATIENT ON BED SLEEPING, EASILY AROUSABLE BY LIGHT TOUCH, ALERT AND ORIENTED X1. PATIENT IS ON 2L OXYGEN VIA NASAL CANNULA. PATIENT IN NO APPARENT RESPIRATORY DISTRESS NOTED. NO SIGN AND SYMPTOM OF PAIN NOTED AT THIS TIME. WILL CONTINUE TO MONITOR.
[2020-04-15 08:00] VITALS: BP 133/93
[2020-04-15] MEDS: DOCUSATE SODIUM 100 MG CAPSULE PO SCH ×2 (08:10→17:00)
[2020-04-15] MEDS: FERROUS SULFATE (325 MG) 325 MG/TAB TABLET PO SCH ×2 (08:10→17:00)
[2020-04-15] MEDS: ASPIRIN 81 MG TAB.CHEW PO SCH (08:10)
[2020-04-15] MEDS: ACETYLCYSTEINE 20% SOLN 800 MG/4 ML VIAL NEB SCH ×2 (08:16→15:32)
[2020-04-15] MEDS: IPRATROPIUM NEB FS 0.5 MG/2.5 ML AMPUL.NEB NEB SCH ×4 (08:16→19:50)
[2020-04-15] MEDS: MEROPENEM 1 G in IV NS 0.9% 100 ML IV SCH ×2 (08:20→21:21)
[2020-04-15] MEDS: MUPIROCIN OINT 2% 22 GM TUBE NS SCH ×2 (08:31→21:00)
[2020-04-15] MEDS: METOPROLOL TARTRATE 25 MG TABLET PO SCH ×2 (09:00→17:00)
--- NOTE | 2020-04-15 09:08 | NUR ---
MS/RN NOTES BP133/93 P 118 METOPROLOL 25MG WAS NOT GIVEN. PATIENT IS ON NPO JOHN ARMENTA WAS AWARE. NO NEW ORDER AT THIS TIME.
[2020-04-15] MEDS: IV D5 LR 1,000 ML IV PRN (09:15)
--- NOTE | 2020-04-15 09:26 | NUR ---
MS/RN NOTES VANCO TROUGH 19 (2-16-21)PER PHARMACIST IS OKAY TO GIVE VANCOMYCIN IV AT 10:00 AM.
[2020-04-15] MEDS ORDERED: LIDOCAINE 1% INJ 50 ML MDV IJ ONE (10:00)
[2020-04-15] MEDS ORDERED: POTASSIUM CHLORIDE 20 MEQ POWDER PACKET NG SCH (10:30)
[2020-04-15] MEDS ORDERED: POTASSIUM CL. PREMIX PERIPHER. 50 ML IV SCH (10:30)
--- NOTE | 2020-04-15 10:30 | NUR ---
MS/RN NOTES COULD NOT GET CONSENT, PER FAMILY CARE MANOR STAFF PATIENT THERE'S NO FAMILY/RELATIVE INVOLVE AND [PATIENT IS WAITING FOR GOVERNMENT CONSERVATOR DR. RODRÍGUEZ IS AWARE.
[2020-04-15] MEDS: VANCOMYCIN 1 GM in IV D5W 250ml IV SCH (10:52)
[2020-04-15] MEDS: POTASSIUM CL. PREMIX PERIPHER. 50 ML IV SCH ×4 (11:04→15:58)
[2020-04-15] MEDS ORDERED: METOPROLOL TARTRATE INJ 5 MG/5 ML AMPUL IVP PRN (15:30)
[2020-04-15 16:00] VITALS: BP 124/70
--- NOTE | 2020-04-15 16:30 | NUR ---
RN/NOTES NGT WAS INSERTED,AND ORDER STAT CHESTS XRAY TO [facility] NGT PLACEMENT. PATIENT WAS PULLED OUT THE NGT. REINSERTED MULTIPLE TIMES BUT CANNOT INSERTED. BILATERAL SOFT WRIST RESTRAINED WAS ORDER. MD WAS AWARE.
--- NOTE | 2020-04-15 19:32 | NUR ---
MS/RN CLOSING NOTES PATIENT IS ON BED, PATIENT IN NO APPARENT RESPIRATORY DISTRESS NOTED. NO SIGN AND SYMPTOM OF PAIN NOTED AT THIS TIME. PLEASE FOLLOW UP THE CXRAY RESULT. WILL ENDORSED TO PRESIDENT SALES AND MARKETING FOR GIANCARLO.
[2020-04-15 20:00] VITALS: BP 132/75
[2020-04-16] MEDS: ACETYLCYSTEINE 20% SOLN 800 MG/4 ML VIAL NEB SCH ×4 (00:16→22:35)
--- NOTE | 2020-04-16 02:40 | NUR ---
Patient in bed resting ,no sign and symptoms of pain ,no respiratory stress,,xray was requested a second time for review of placement of naso gastric tube, still not placed correctly,will request another placement and xray done.
[2020-04-16 06:46] LABS: BASOPHILS # (AUTO) 0.1 /CMM (0.0-0.2); BASOPHILS % (AUTO) 0.9 % (0.0-2.0); EOSINOPHILS % (AUTO) 0.5 % (0.0-6.0); HEMATOCRIT 27 % (39-51); HEMOGLOBIN 8.8 g/dL (13.5-17.5); LYMPHOCYTES # (AUTO) 2.4 /CMM (0.8-4.8); LYMPHOCYTES % (AUTO) 22.7 % (20.0-44.0); MEAN CORPUSCULAR HGB CONC 32 g/dl (31.0-36.0); MEAN CORPUSCULAR VOLUME 77 fL (80-96); MONOCYTES # (AUTO) 0.7 /CMM (0.1-1.30); MONOCYTES % (AUTO) 6.6 % (2.0-12.0); NEUTROPHILS # (AUTO) 7.3 /CMM (1.8-8.9); NEUTROPHILS % (AUTO) 69.3 % (43.0-81.0); PLATELET COUNT (AUTO) 134 /CMM (150-450); RED BLOOD CELL COUNT(AUTO) 3.56 MIL/uL (4.5-6.0); WHITE BLOOD COUNT (AUTO) 10.6 K/uL (4.3-11.0)
--- NOTE | 2020-04-16 07:01 | NUR ---
oom 310 Patient alert and oreinted times 1,ptient bed in lowest saftey position,Patient was sleeping went with PHARMACOVIGILANCE SPECIALIST to clean and turn patient,patient has sore in between legs and groin area,put alot of protective barrier cream,bed linen was changed.Patient was left sleeping again.Patient is on oxygen.
[2020-04-16 07:04] LABS: CALCIUM, SERUM 8.4 mg/dL (8.5-10.1); CREATININE 1.2 mg/dL (0.6-1.3); MAGNESIUM 2.2 mg/dL (1.8-2.4); PHOSPHORUS 2.6 mg/dL (2.5-4.9); POTASSIUM 3.7 mmol/L (3.5-5.1)
[2020-04-16] MEDS: IPRATROPIUM NEB FS 0.5 MG/2.5 ML AMPUL.NEB NEB SCH ×4 (07:25→19:29)
[2020-04-16] MEDS: IV D5 LR 1,000 ML IV PRN (07:40)
--- NOTE | 2020-04-16 07:50 | NUR ---
MS/RN OPENING NOTES RECEIVED PATIENT ON BED. PATIENT IS ON 2 L OXYGEN VIA NASAL CANNULA SATURATING WELL. PATIENT IN NO APPARENT RESPIRATORY DISTRESS NOTED. NO COMPLAINED OF PAIN NOTED AT THIS TIME. WILL CONTINUE TO MONITOR.
[2020-04-16 08:00] VITALS: BP 117/61
[2020-04-16] MEDS: FERROUS SULFATE (325 MG) 325 MG/TAB TABLET PO SCH ×2 (09:00→17:00)
[2020-04-16] MEDS: METOPROLOL TARTRATE 25 MG TABLET PO SCH ×2 (09:00→17:00)
[2020-04-16] MEDS: ASPIRIN 81 MG TAB.CHEW PO SCH (09:00)
[2020-04-16] MEDS: DOCUSATE SODIUM 100 MG CAPSULE PO SCH ×2 (09:00→17:00)
--- NOTE | 2020-04-16 09:00 | NUR ---
MS/RN NOTES NGT IS NOT OKAY TO USE, VISUAL SUPERVISOR RECOMMENDED FLUOROSCOPY GUIDED TO BE NEEDED PER [facility] [employer] S[employer]TER CAKE ICER AND PACKER. JOHN SAUNDERS NP WAS AWARE. NO NEW ORDER AT THIS TIME.
[2020-04-16] MEDS: MEROPENEM 1 G in IV NS 0.9% 100 ML IV SCH ×2 (09:11→21:25)
[2020-04-16] MEDS: MUPIROCIN OINT 2% 22 GM TUBE NS SCH ×2 (09:15→21:26)
[2020-04-16] MEDS: VANCOMYCIN 1 GM in IV D5W 250ml IV SCH (10:02)
--- NOTE | 2020-04-16 11:35 | NUR ---
MS/RN NOTES DR. SAHNI ORDER PEG PLACEMENT AND GET CONSENT FOR PEG PLACEMENT. NOTED AND CARRIED OUT.
--- NOTE | 2020-04-16 13:21 | NUR ---
MS/RN NOTES CALLED CURTIS CASTANON (CONSERVATOR) TEL AND GIOVANNY FUENTES TEL NO ANSWER, LEAVE MESSAGE, WAITING FOR CALLBACK. DR. SAHNI IS AWARE. WILL TRY TO CALL AGAIN.
[2020-04-16 16:00] VITALS: BP 131/75
--- NOTE | 2020-04-16 18:34 | NUR ---
MS/RN CLOSING NOTES PATIENT IS ON BED. ALERT AND ORIENTED X1. PATIENT IS ON 2 L OXYGEN SATURATION 97%. PATIENT IN NO APPARENT RESPIRATORY DISTRESS NOTED. NO SIGN AND SYMPTOM OF PAIN NOTED AT THIS TIME. IV ACCESS AT RIGHT ARM MIDLINE WITH IV FLUID OF D5NS 1L AT 75ML/HR ON AND INFUSING WELL. SEEN AND EXAMINED BY MD WITH ORDERS MADE AND CARRIED OUT. IV ANTIBIOTIC WAS GIVEN. SAFETY PRECAUTIONS WAS IN PLACED. BED IN LOWEST POSITION AND LOCKED. SIDE RAILS UP X2. CALL LIGHT WITHIN REACH. PEG PLACEMENT CONSENT WAS SIGNED AND BONE MARROW BIOPSY WAS SIGNED ATTACH TO BARB HIGHTOWER CONTROL ROOM SUPERVISOR BY DR. RODRÍGUEZ ORDER TO COLLECT STOOL BEFORE THE BONE MARROW BIOPSY TO CHECK IF THERE IS BLOOD IN THE STOOL. WILL ENDORSED TO AIRBORNE OPERATIONS FOR GIANCARLO.
[2020-04-16 20:38] VITALS: BP 168/90
--- NOTE | 2020-04-17 06:00 | NUR ---
MS RN CLOSING NOTES: PATIENT IN BED,ASLEEP.A/O X2. NO S/S OF DISTRESS NOTED. CALL LIGHT WITHIN REACH. BED ALARM ON. BED IN LOWEST AND LOCKED POSITION. TURNED AND REPOSITIONED Q2 HOURS. HEELS OFFLOADED. NPO.
[2020-04-17 06:50] LABS: CREATININE 1.2 mg/dL (0.6-1.3); MAGNESIUM 1.9 mg/dL (1.8-2.4); PHOSPHORUS 2.6 mg/dL (2.5-4.9); POTASSIUM 3.4 mmol/L (3.5-5.1)
[2020-04-17 06:51] LABS: BASOPHILS % (AUTO) 0.5 % (0.0-2.0); EOSINOPHILS % (AUTO) 0.7 % (0.0-6.0); HEMATOCRIT 25 % (39-51); HEMOGLOBIN 7.8 g/dL (13.5-17.5); LYMPHOCYTES # (AUTO) 1.9 /CMM (0.8-4.8); MEAN CORPUSCULAR HGB CONC 32 g/dl (31.0-36.0); MEAN CORPUSCULAR VOLUME 78 fL (80-96); MONOCYTES # (AUTO) 0.5 /CMM (0.1-1.30); MONOCYTES % (AUTO) 7.4 % (2.0-12.0); NEUTROPHILS # (AUTO) 4.3 /CMM (1.8-8.9); NEUTROPHILS % (AUTO) 63.4 % (43.0-81.0); PLATELET COUNT (AUTO) 108 /CMM (150-450); RED BLOOD CELL COUNT(AUTO) 3.13 MIL/uL (4.5-6.0); WHITE BLOOD COUNT (AUTO) 6.8 K/uL (4.3-11.0)
--- NOTE | 2020-04-17 07:43 | NUR ---
MS RN OPENING NOTE PATIENT IS IN BED RESTING. PATIENT IS IN NO ACUTE DISTRESS. PATIENT IS ON OXYGEN 3L ON NC. TOLERATING WELL. NO SOB NOTED. SAFETY PRECAUTIONS ARE IN PLACE. BED IN THE LOWEST POSITION, SIDE RAILS ARE UP. CALL LIGHT WITHIN REACH. WILL CONTINUE TO MONITOR CLOSELY.
[2020-04-17] MEDS: ACETYLCYSTEINE 20% SOLN 800 MG/4 ML VIAL NEB SCH ×3 (07:48→23:41)
[2020-04-17] MEDS: IPRATROPIUM NEB FS 0.5 MG/2.5 ML AMPUL.NEB NEB SCH ×4 (07:48→19:44)
[2020-04-17 07:59] VITALS: BP 128/72
[2020-04-17] MEDS: MEROPENEM 1 G in IV NS 0.9% 100 ML IV SCH ×2 (08:24→21:49)
[2020-04-17] MEDS: MUPIROCIN OINT 2% 22 GM TUBE NS SCH ×2 (08:27→21:53)
[2020-04-17] MEDS: IV D5 LR 1,000 ML IV PRN (08:31)
[2020-04-17] MEDS: DOCUSATE SODIUM 100 MG CAPSULE PO SCH ×2 (08:47→17:49)
[2020-04-17] MEDS: ASPIRIN 81 MG TAB.CHEW PO SCH (08:47)
[2020-04-17] MEDS: FERROUS SULFATE (325 MG) 325 MG/TAB TABLET PO SCH ×2 (08:47→17:50)
--- NOTE | 2020-04-17 08:48 | NUR ---
MS RN NOTE PATIENT IS BEING KEPT NPO DUE TO FAILED SWALLOW EVALUATION. MORNING ORAL MEDICATIONS ARE NOT GIVEN. PATIENT IS AWAITING PEG PLACEMENT.
[2020-04-17] MEDS: METOPROLOL TARTRATE 25 MG TABLET PO SCH ×2 (09:00→17:50)
[2020-04-17 09:34] LABS: BAND % (MANUAL) 2 % (0.0-5.0); LYMPHOCYTES % (MANUAL) 18 % (16-48); MONOCYTES % (MANUAL) 8 % (0-11.0); NEUTROPHILS % (MANUAL) 72 (42-76)
[2020-04-17] MEDS: VANCOMYCIN 1 GM in IV D5W 250ml IV SCH (10:24)
[2020-04-17] MEDS ORDERED: ANESTHESIA TRAY IN PYXIS 1 EA TRAY MC ONE (10:38)
[2020-04-17] MEDS: POTASSIUM CL. PREMIX PERIPHER. 50 ML IV SCH ×2 (11:36→12:23)
[2020-04-17] MEDS ORDERED: diphenhydrAMINE HCL 50 MG/ML VIAL IV ONE (17:00)
[2020-04-17] MEDS ORDERED: MORPHINE SULFATE INJ 2 MG/ML DISP.SYRIN IV ONE (17:00)
[2020-04-17] MEDS ORDERED: ACETAMINOPHEN 325 MG TABLET PO ONE (17:00)
--- NOTE | 2020-04-17 18:53 | NUR ---
MS RN NOTE CURTIS PATIENTS CONSERVER SAID NO TUBE FEEDING PER PATIENTS POLST WISHES, ONLY WATER AND MEDICATIONS CAN BE GIVEN.
--- NOTE | 2020-04-17 19:25 | NUR ---
MS RN CLOSING NOTE PATIENT IS IN BED RESTING. PATIENT IS IN NO ACUTE DISTRESS. PATIENT IS ON OXYGEN 2L ON NC. TOLERATING WELL. NO SOB NOTED. PATIENT HAD PEG PLACEMENT 04/17/20, FOR MEDICATIONS AND WATER ONLY, PER PATIENTS CONSERVATOR. SAFETY PRECAUTIONS ARE IN PLACE. BED IN THE LOWEST POSITION, SIDE RAILS ARE UP. CALL LIGHT WITHIN REACH. ENDORSE PATIENT O MANUFACTURING ACCOUNTANT NURSE FOR GIANCARLO.
[2020-04-17 20:00] VITALS: BP 98/58
--- NOTE | 2020-04-18 06:00 | NUR ---
MS RN CLOSING NOTES: PATIENT IN BED, ASLEEP,AROUSABLE. NO S/S OF DISTRESS NOTED. CALL LIGHT WITHIN REACH. BED ALARM ON. BED IN LOWEST AND LOCKED POSITION. GT INTACT-CLAMPED, WITH ABDOMINAL BINDER ON. NPO. TURNED AND REPOSITIONED [id number]. HEELS OFFLOADED. WITH O2 AT 2L/MIN NASAL CANNULA, GOOD O2 SAT.AFEBRILE THROUGHOUT THE SHIFT. A/O X2. NO COMPLAIN OF PAIN. BILATERAL ARMS ELEVATED WITH PILLOWS AT ALL TIMES.
[2020-04-18 06:33] LABS: BASOPHILS % (AUTO) 0.4 % (0.0-2.0); EOSINOPHILS % (AUTO) 0.6 % (0.0-6.0); HEMATOCRIT 25 % (39-51); HEMOGLOBIN 7.8 g/dL (13.5-17.5); LYMPHOCYTES # (AUTO) 1.5 /CMM (0.8-4.8); LYMPHOCYTES % (AUTO) 19.5 % (20.0-44.0); MEAN CORPUSCULAR HGB CONC 31 g/dl (31.0-36.0); MEAN CORPUSCULAR VOLUME 79 fL (80-96); MONOCYTES # (AUTO) 0.7 /CMM (0.1-1.30); MONOCYTES % (AUTO) 9.6 % (2.0-12.0); NEUTROPHILS # (AUTO) 5.4 /CMM (1.8-8.9); NEUTROPHILS % (AUTO) 69.9 % (43.0-81.0); PLATELET COUNT (AUTO) 103 /CMM (150-450); RED BLOOD CELL COUNT(AUTO) 3.13 MIL/uL (4.5-6.0); WHITE BLOOD COUNT (AUTO) 7.8 K/uL (4.3-11.0)
[2020-04-18 07:01] LABS: CALCIUM, SERUM 7.9 mg/dL (8.5-10.1); CREATININE 1.2 mg/dL (0.6-1.3); MAGNESIUM 1.8 mg/dL (1.8-2.4); PHOSPHORUS 2.9 mg/dL (2.5-4.9); POTASSIUM 3.7 mmol/L (3.5-5.1)
[2020-04-18] MEDS: ACETYLCYSTEINE 20% SOLN 800 MG/4 ML VIAL NEB SCH ×3 (07:45→23:39)
[2020-04-18] MEDS: IPRATROPIUM NEB FS 0.5 MG/2.5 ML AMPUL.NEB NEB SCH ×4 (07:45→19:41)
[2020-04-18 08:00] VITALS: BP 121/68
--- NOTE | 2020-04-18 08:08 | NUR ---
MS RN OPENING NOTE PATIENT IS IN BED RESTING. PATIENT IS IN NO ACUTE DISTRESS. PATIENT IS ON OXYGEN 2L ON NC. TOLERATING WELL. NO SOB NOTED. PATIENT HAS G-TUBE ONLY FOR MEDS AND HYDRATION. SAFETY PRECAUTIONS ARE IN PLACE. BED IN THE LOWEST POSITION, SIDE RAILS ARE UP. CALL LIGHT WITHIN REACH. WILL CONTINUE TO MONITOR CLOSELY.
[2020-04-18] MEDS: MUPIROCIN OINT 2% 22 GM TUBE NS SCH ×2 (08:47→21:47)
[2020-04-18] MEDS: MEROPENEM 1 G in IV NS 0.9% 100 ML IV SCH ×2 (08:47→21:42)
[2020-04-18] MEDS: DOCUSATE SODIUM 100 MG CAPSULE PO SCH ×2 (08:50→16:20)
[2020-04-18] MEDS: FERROUS SULFATE (325 MG) 325 MG/TAB TABLET PO SCH ×2 (08:50→16:21)
[2020-04-18] MEDS: ASPIRIN 81 MG TAB.CHEW PO SCH (08:50)
[2020-04-18] MEDS: METOPROLOL TARTRATE 25 MG TABLET PO SCH ×2 (08:51→16:21)
[2020-04-18] MEDS: IV D5W 1,000 ML IV PRN (12:30)
[2020-04-18] MEDS ORDERED: PROPOFOL 200 MG/20 ML VIAL IV ONE (14:09)
[2020-04-18] MEDS ORDERED: CEFAZOLIN 1 GM VIAL IV ONE (14:09)
[2020-04-18 16:00] VITALS: BP 133/71
[2020-04-18] MEDS: DOCUSATE SODIUM LIQ 100 MG/10 ML UDC GT SCH (16:46)
--- NOTE | 2020-04-18 18:47 | NUR ---
MS RN CLOSING NOTE PATIENT IS IN BED RESTING. PATIENT IS IN NO ACUTE DISTRESS. PATIENT IS ON OXYGEN 2L ON NC. TOLERATING WELL. NO SOB NOTED. PATIENT HAS G-TUBE FOR MEDICATIONS AND WATER ONLY, PER PATIENTS CONSERVATOR. SAFETY PRECAUTIONS ARE IN PLACE. BED IN THE LOWEST POSITION, SIDE RAILS ARE UP. CALL LIGHT WITHIN REACH. ENDORSE PATIENT TO SENIOR JAVA ENGINEER NURSE FOR GIANCARLO.
--- NOTE | 2020-04-18 19:45 | NUR ---
MS RN OPENING NOTES: PATIENT IN BED, ASLEEP, EASILY AROUSABLE, A/O X2. NO S/S OF DISTRESS NOTED. CALL LIGHT WITHIN REACH. BED ALARM ON. BED IN LOWEST AND LOCKED POSITION. HOB ELEVATED AT ALL TIMES. NPO. WITH GT INTACT, CLAMPED, WITH ABDOMINAL BINDER ON. BILATERAL ARMS ELEVATED AT ALL TIMES WITH PILLOW. TURNED AND REPOSITIONED. WITH O2 AT 2L/MIN NASAL CANNULA. LEFT EAR WOUND CLEANSED WITH NS, PAT DRY, AND COVERED WITH DRY DRESSING, WILL MONITOR. STILL TO COLLECT STOOL FOR OB, DIRK SHEIKH MADE AWARE.
[2020-04-18 20:00] VITALS: BP 122/64
--- NOTE | 2020-04-19 06:00 | NUR ---
MS RN CLOSING NOTES: PATIENT IN BED, AWAKE. A/O X2. NO S/S OF DISTRESS NOTED.CALL LIGHT WITHIN REACH. BED ALARM ON. BED IN LOWEST AND LOCKED POSITION. TURNED AND REPOSITIONED [id number]. OFFLOADED. NO COMPLAIN OF PAIN.
[2020-04-19 06:02] LABS: BASOPHILS % (AUTO) 0.2 % (0.0-2.0); EOSINOPHILS % (AUTO) 0.5 % (0.0-6.0); HEMATOCRIT 24 % (39-51); HEMOGLOBIN 7.6 g/dL (13.5-17.5); LYMPHOCYTES # (AUTO) 1.9 /CMM (0.8-4.8); LYMPHOCYTES % (AUTO) 23.4 % (20.0-44.0); MEAN CORPUSCULAR HGB CONC 32 g/dl (31.0-36.0); MEAN CORPUSCULAR VOLUME 78 fL (80-96); MONOCYTES # (AUTO) 0.6 /CMM (0.1-1.30); MONOCYTES % (AUTO) 6.8 % (2.0-12.0); NEUTROPHILS # (AUTO) 5.7 /CMM (1.8-8.9); NEUTROPHILS % (AUTO) 69.1 % (43.0-81.0); PLATELET COUNT (AUTO) 98 /CMM (150-450); RED BLOOD CELL COUNT(AUTO) 3.06 MIL/uL (4.5-6.0); WHITE BLOOD COUNT (AUTO) 8.3 K/uL (4.3-11.0)
[2020-04-19 06:30] LABS: CALCIUM, SERUM 7.9 mg/dL (8.5-10.1); CREATININE 1.2 mg/dL (0.6-1.3); MAGNESIUM 1.7 mg/dL (1.8-2.4); PHOSPHORUS 2.3 mg/dL (2.5-4.9); POTASSIUM 3.2 mmol/L (3.5-5.1)
[2020-04-19] MEDS: IPRATROPIUM NEB FS 0.5 MG/2.5 ML AMPUL.NEB NEB SCH ×4 (07:52→20:21)
[2020-04-19] MEDS: ACETYLCYSTEINE 20% SOLN 800 MG/4 ML VIAL NEB SCH ×3 (07:52→23:56)
[2020-04-19 08:00] VITALS: BP 145/58
--- NOTE | 2020-04-19 08:00 | NUR ---
RN OPENING NOTE PT IS AWAKE IN BED RESTING. A/O X2 WITH SLIGHT CONFUSION. ABLE TO COMMUNICATE SOME NEEDS TO NURSES. NO COMPLAINT OF PAIN. CURRENTLY ON 2L O2 VIA NC. NO RESPIRATORY DISTRESS PRESENT. G TUBE PRESENT AND CLAMPED. INCONTINENT. CURRENTLY ON BEDREST AND NPO DIET. L EAR WOUND PRESENT, REDNESS PRESENT IN BUTTOCKS. MIDLINE PRESENT IN R UPPER ARM. SAFETY MEASURES IN PLACE. SIDE RAILS RAISED. BED LOWERED. CALL LIGHT WITHIN REACH. WILL CONTINUE TO MONITOR.
[2020-04-19] MEDS: DOCUSATE SODIUM LIQ 100 MG/10 ML UDC GT SCH ×2 (08:14→17:18)
[2020-04-19] MEDS: FERROUS SULFATE (325 MG) 325 MG/TAB TABLET PO SCH ×2 (08:14→17:17)
[2020-04-19] MEDS: ASPIRIN 81 MG TAB.CHEW PO SCH (08:14)
[2020-04-19] MEDS: IV D5W 1,000 ML IV PRN (08:14)
[2020-04-19] MEDS: METOPROLOL TARTRATE 25 MG TABLET PO SCH ×2 (08:16→17:18)
[2020-04-19] MEDS: MEROPENEM 1 G in IV NS 0.9% 100 ML IV SCH ×2 (08:35→20:46)
[2020-04-19] MEDS: MUPIROCIN OINT 2% 22 GM TUBE NS SCH ×2 (08:35→20:50)
[2020-04-19] MEDS ORDERED: Magnesium 1GM/D5W 100ML PREMIX 100 ML IV SCH (11:00)
[2020-04-19] MEDS ORDERED: K PHOS NEUTRAL 250 MG TABLET PO ONE (11:30)
[2020-04-19] MEDS: POTASSIUM CL. PREMIX PERIPHER. 50 ML IV SCH ×4 (11:44→16:08)
[2020-04-19 16:00] VITALS: BP 128/67
--- NOTE | 2020-04-19 18:37 | NUR ---
RN CLOSING NOTE PT IS IN BED RESTING. AROUSABLE TO LIGHT TOUCH. A/O X2 WITH SLIGHT CONFUSION. ABLE TO COMMUNICATE SOME NEEDS TO NURSES. NO COMPLAINT OF PAIN. CURRENTLY ON 2L O2 VIA NC. NO RESPIRATORY DISTRESS PRESENT. G TUBE PRESENT AND CLAMPED. INCONTINENT. CURRENTLY ON BEDREST AND NPO DIET. L EAR WOUND PRESENT, REDNESS PRESENT IN BUTTOCKS. MIDLINE PRESENT IN R UPPER ARM. SAFETY MEASURES IN PLACE. SIDE RAILS RAISED. BED LOWERED. CALL LIGHT WITHIN REACH. ROUTINE MEDS GIVEN. REPORT TO BE GIVEN TO NIGHT NURSE.
--- NOTE | 2020-04-19 19:55 | NUR ---
MS RN OPENING NOTE Patient awake in bed A/O x2, HOB elevated. Breathing even, unlabored on 2 LPM NC. No acute distress or SOB noted. Skin is warm, pink, dry with wound to left ear and redness on sacrum. IV site LUIS midline running D5W @ 75 ml/hr. No redness or infiltration noted. G-tube in place, no redness around site. G-tube is patent. Patient is bed bound and incontinent. Bed in low position, wheels locked, side rails up x2, call light within reach.
[2020-04-19 20:00] VITALS: BP 121/76
[2020-04-19 22:41] VITALS: BP 121/76
--- NOTE | 2020-04-20 06:03 | NUR ---
MS RN CLOSING NOTE Patient awake in bed A/O x2, HOB elevated. Breathing even, unlabored on 2 LPM NC. IV site LUIS midline running D5W @ 75 ml/hr. No redness or infiltration noted. G-tube in place, no redness around site. G-tube is patent. All needs met. Medications administered as ordered. Bed in low position, wheels locked, side rails up x2, call light within reach.
[2020-04-20 06:42] LABS: BASOPHILS % (AUTO) 0.5 % (0.0-2.0); EOSINOPHILS % (AUTO) 0.4 % (0.0-6.0); HEMATOCRIT 23 % (39-51); HEMOGLOBIN 7.6 g/dL (13.5-17.5); LYMPHOCYTES # (AUTO) 2.8 /CMM (0.8-4.8); LYMPHOCYTES % (AUTO) 26.6 % (20.0-44.0); MEAN CORPUSCULAR HGB CONC 33 g/dl (31.0-36.0); MEAN CORPUSCULAR VOLUME 76 fL (80-96); MONOCYTES # (AUTO) 0.8 /CMM (0.1-1.30); MONOCYTES % (AUTO) 7.2 % (2.0-12.0); NEUTROPHILS # (AUTO) 6.8 /CMM (1.8-8.9); NEUTROPHILS % (AUTO) 65.3 % (43.0-81.0); PLATELET COUNT (AUTO) 106 /CMM (150-450); RED BLOOD CELL COUNT(AUTO) 3.05 MIL/uL (4.5-6.0); WHITE BLOOD COUNT (AUTO) 10.4 K/uL (4.3-11.0)
[2020-04-20 07:03] LABS: CREATININE 1.2 mg/dL (0.6-1.3); MAGNESIUM 1.9 mg/dL (1.8-2.4); PHOSPHORUS 2.1 mg/dL (2.5-4.9); POTASSIUM 3.2 mmol/L (3.5-5.1)
--- NOTE | 2020-04-20 07:25 | NUR ---
MS/RN Opening note Patient received from validation manager. A/O X1-2, vital signs stable, no fevers noted. IV fluids infusing at 75ml/hr via right upper arm midline, no signs of infiltration seen. GT with clean dressing, for medication and water flushes only. Safety measures in place, call light within reach, will continue to monitor and ensure safety.
[2020-04-20 08:00] VITALS: BP 126/66
[2020-04-20] MEDS: ACETYLCYSTEINE 20% SOLN 800 MG/4 ML VIAL NEB SCH ×3 (08:05→23:30)
[2020-04-20] MEDS: IPRATROPIUM NEB FS 0.5 MG/2.5 ML AMPUL.NEB NEB SCH ×4 (08:05→19:43)
[2020-04-20] MEDS: ASPIRIN 81 MG TAB.CHEW PO SCH (08:40)
[2020-04-20] MEDS: DOCUSATE SODIUM LIQ 100 MG/10 ML UDC GT SCH ×2 (08:40→16:53)
[2020-04-20] MEDS: FERROUS SULFATE (325 MG) 325 MG/TAB TABLET PO SCH ×2 (08:40→16:53)
[2020-04-20] MEDS: METOPROLOL TARTRATE 25 MG TABLET PO SCH ×2 (08:40→16:54)
[2020-04-20] MEDS: MUPIROCIN OINT 2% 22 GM TUBE NS SCH ×2 (08:41→21:00)
[2020-04-20] MEDS: MEROPENEM 1 G in IV NS 0.9% 100 ML IV SCH (08:46)
[2020-04-20] MEDS ORDERED: Z GUARD REMEDY 2 OZ OINT TP PRN (09:30)
--- NOTE | 2020-04-20 09:32 | NUR ---
MS/fisheries technical officer Seen by wound care - orders noted and carried out.
--- NOTE | 2020-04-20 09:45 | NUR ---
WOUND CARE CONSULT: PT PRESENTS WITH RASH AND OPEN SKIN TO GROIN FOLDS, PERINEUM, INNER THIGHS AND LOWER BUTTOCKS WELL INTACT DEEP TISSUE INJURY TO LEFT UPPER/POSTERIOR EAR. RECOMMENDATIONS MADE FOR SKIN PROTECTION AND WOUND CARE. DISCUSSED WITH NURSING STAFF. ALESSANDRO ISOFLEX LOW AIRLOSS BED TO BE PLACED. MD IN AGREEMENT WITH PLAN OF CARE. Addendum: 04/20/20 at 0947 by GE LR WNDNU Amended: Links added.
--- NOTE | 2020-04-20 09:45 | NUR ---
MS/respiratory care faculty Wound care carried out, ointments applied. Pictures taken and placed in chart.
[2020-04-20] MEDS: POTASSIUM CHLORIDE 20 MEQ TAB.PRT.SR PO SCH ×2 (11:35→12:12)
[2020-04-20] MEDS: Z GUARD REMEDY 2 OZ OINT TP SCH (11:36)
[2020-04-20] MEDS: CLOTRIMAZOLE/BETAMETASONE DIPROPIONATE 15 GM TUBE TP SCH ×2 (11:37→21:00)
--- NOTE | 2020-04-20 12:00 | NUR ---
MS/RN S/B Jose Raul Martinez, ABSORPTION OPERATOR Seen by ABSORPTION OPERATOR - patient to be discharged back to board and care today with hospice to be initiated upon arrival. GT to be used for medications and water only.
[2020-04-20] MEDS ORDERED: FERR325T28 GT (14:12)
[2020-04-20] MEDS ORDERED: ONDA4VIA23 IVP (14:12)
[2020-04-20] MEDS ORDERED: NEUTRA PHOS 1 POWD.PACKET GT ONE (14:30)
--- NOTE | 2020-04-20 14:34 | NUR ---
MS/RN Exit care Discharge paperwork completed, awaiting further instruction from case finisher as regards to order picker time and name of hospice that will follow patient.
--- NOTE | 2020-04-20 15:25 | NUR ---
Social Service Bioethics meeting: SW spoke with POLICE OFFICER (Jose Raul Martinez) regarding bioethics meeting. MD (Dr. Christensen and Dr Sanchez) spoke with the family. No need to coordinate bioethics meeting with executive secretary social welfare. Plan: Veneer Puller confirmed bioethics meeting done with staff and family. business services assistant office will be available as needed.
[2020-04-20] MEDS ORDERED: K PHOS NEUTRAL 250 MG TABLET PO ONE (15:30)
--- NOTE | 2020-04-20 15:53 | NUR ---
MS/RN COVID swab Rapid covid swab taken and sent to lab, result required prior to discharge.
[2020-04-20 16:00] VITALS: BP 122/60
--- NOTE | 2020-04-20 18:15 | NUR ---
MS/RN COVID result COVID swab resulted as negative. All paperwork prepared ready for discharge back to board and care later today, hospice/palliative care to be initiated once in facility. Midline removed, pressure dressing applied. All wound care completed.
--- NOTE | 2020-04-20 18:24 | NUR ---
MS/RN End note Patient ready for discharge back to board and care.
[2020-04-20 20:00] VITALS: BP 138/67
--- NOTE | 2020-04-20 20:01 | NUR ---
DISCHARGE NOTE PATIENT DISCHARGED TO BOARD AND CARE WITH ALL BELONGINGS BY STRETCHER ACCOMPANIED BY EMS. PATIENT IN NO DISTRESS, VITAL SIGNS STABLE, DENIES ANY PAIN.
--- NOTE | 2020-04-20 22:50 | NUR ---
PATIENT RETURNED TO UNIT VIA STRETCHER ACCOMPANIED BY EMS AFTER ADMISSION WAS DECLINED BY BOARD AND CARE. PATIENT DENIES ANY PAIN/DISCOMFORT, ASSISTED IN BED, BED IN LOWEST POSITION, CALL LIGHT PLACED WITHIN REACH. SAFETY PRECAUTIONS MAINTAINED. WILL CONTINUE MONITORING CLOSELY.
[2020-04-20 23:30] VITALS: BP 134/59
[2020-04-21] MEDS ORDERED: MUPIROCIN OINT 2% 22 GM TUBE ONE (02:04)
[2020-04-21] MEDS: CLOTRIMAZOLE/BETAMETASONE DIPROPIONATE 15 GM TUBE TP SCH ×2 (04:17→13:00)
--- NOTE | 2020-04-21 07:00 | NUR ---
RN CLOSING NOTE PATIENT RESTING COMFORTABLY IN BED, IN NO APPARENT PAIN OR DISCOMFORT. VITAL SIGNS STABLE. SAFETY MEASURES IN PLACE, CALL LIGHT WITHIN REACH.
[2020-04-21] MEDS: ACETYLCYSTEINE 20% SOLN 800 MG/4 ML VIAL NEB SCH ×2 (07:31→15:29)
[2020-04-21] MEDS: IPRATROPIUM NEB FS 0.5 MG/2.5 ML AMPUL.NEB NEB SCH ×3 (07:31→15:29)
[2020-04-21 08:00] VITALS: BP 129/72
[2020-04-21 09:00] VITALS: BP 129/72
[2020-04-21] MEDS: ASPIRIN 81 MG TAB.CHEW PO SCH (09:00)
[2020-04-21] MEDS: METOPROLOL TARTRATE 25 MG TABLET PO SCH (09:00)
[2020-04-21] MEDS: DOCUSATE SODIUM LIQ 100 MG/10 ML UDC GT SCH (09:00)
[2020-04-21] MEDS: MUPIROCIN OINT 2% 22 GM TUBE NS SCH (09:00)
[2020-04-21] MEDS: Z GUARD REMEDY 2 OZ OINT TP SCH (09:00)
[2020-04-21] MEDS: FERROUS SULFATE (325 MG) 325 MG/TAB TABLET PO SCH (09:00)
[2020-04-21] MEDS ORDERED: DOCUSATE SODIUM 100 MG CAPSULE PO ONE (11:29)
[2020-04-21 12:02] LABS: BASOPHILS # (AUTO) 0.1 /CMM (0.0-0.2); BASOPHILS % (AUTO) 0.4 % (0.0-2.0); EOSINOPHILS % (AUTO) 0.2 % (0.0-6.0); HEMATOCRIT 22 % (39-51); LYMPHOCYTES # (AUTO) 3.7 /CMM (0.8-4.8); LYMPHOCYTES % (AUTO) 26.3 % (20.0-44.0); MEAN CORPUSCULAR HGB CONC 31 g/dl (31.0-36.0); MEAN CORPUSCULAR VOLUME 78 fL (80-96); MONOCYTES # (AUTO) 0.9 /CMM (0.1-1.30); MONOCYTES % (AUTO) 6.2 % (2.0-12.0); NEUTROPHILS # (AUTO) 9.5 /CMM (1.8-8.9); NEUTROPHILS % (AUTO) 66.9 % (43.0-81.0); PLATELET COUNT (AUTO) 126 /CMM (150-450); RED BLOOD CELL COUNT(AUTO) 2.85 MIL/uL (4.5-6.0); WHITE BLOOD COUNT (AUTO) 14.2 K/uL (4.3-11.0)
[2020-04-21 13:18] LABS: HEMOGLOBIN 6.9 g/dL (13.5-17.5)
--- NOTE | 2020-04-21 13:37 | NUR ---
gt removed at bedside by MAHAD Guerra. no pain or bleeding noted. will monitor.
[2020-04-21 14:36] LABS: LYMPHOCYTES % (MANUAL) 24 % (16-48); MONOCYTES % (MANUAL) 3 % (0-11.0); NEUTROPHILS % (MANUAL) 73 (42-76)
--- NOTE | 2020-04-21 17:00 | NUR ---
Pt discharged. Left via ambulance to go to board and formerly [facility]
== END 2020-04-21 17:15 | disposition hospice, home (50) | DRG 871 ==
LOC: ER 18:14 → TRANSITION 23:33 → TELE2 04-02 03:42 → TELE 04-03 22:52 → MED 04-04 08:41 → UNDODISIN 04-20 20:25
PROVIDERS: ADMIT Student in an Organized Health Care Education/Training Program; ATTEND Nurse Practitioner Family
PROC: 30233N1 Transfusion of Nonautologous Red Blood Cells into Peripheral Vein, Percutaneous Approach (ICD-10-PCS; 2020-04-07)
PROC: 05H533Z Insertion of Infusion Device into Right Subclavian Vein, Percutaneous Approach (ICD-10-PCS; 2020-04-08)
PROC: B546ZZA Ultrasonography of Right Subclavian Vein, Guidance (ICD-10-PCS; 2020-04-08)
PROC: 07DR3ZX Extraction of Iliac Bone Marrow, Percutaneous Approach, Diagnostic (ICD-10-PCS; principal; 2020-04-17)
PROC: 0DH63UZ Insertion of Feeding Device into Stomach, Percutaneous Approach (ICD-10-PCS; 2020-04-17)
DX: A41.9 Sepsis, unspecified organism (principal); N17.0 Acute kidney failure with tubular necrosis; G93.41 Metabolic encephalopathy; R65.21 Severe sepsis with septic shock; K72.00 Acute and subacute hepatic failure without coma; J69.0 Pneumonitis due to inhalation of food and vomit; E44.0 Moderate protein-calorie malnutrition; D68.69 Other thrombophilia; F03.90 Unspecified dementia, unspecified severity, without behavioral disturbance, psychotic disturbance, mood disturbance, and anxiety; I10 Essential (primary) hypertension; D63.8 Anemia in other chronic diseases classified elsewhere; E87.6 Hypokalemia; I48.91 Unspecified atrial fibrillation; Z79.82 Long term (current) use of aspirin; Z87.891 Personal history of nicotine dependence; K44.9 Diaphragmatic hernia without obstruction or gangrene; K59.00 Constipation, unspecified; Z20.822 Contact with and (suspected) exposure to COVID-19; I71.4 Abdominal aortic aneurysm, without rupture; I70.8 Atherosclerosis of other arteries; Z68.24 Body mass index [BMI] 24.0-24.9, adult; Z22.322 Carrier or suspected carrier of Methicillin resistant Staphylococcus aureus; K40.20 Bilateral inguinal hernia, without obstruction or gangrene, not specified as recurrent; R16.1 Splenomegaly, not elsewhere classified; R13.12 Dysphagia, oropharyngeal phase; D50.0 Iron deficiency anemia secondary to blood loss (chronic); K22.70 Barrett's esophagus without dysplasia; K26.9 Duodenal ulcer, unspecified as acute or chronic, without hemorrhage or perforation; K25.9 Gastric ulcer, unspecified as acute or chronic, without hemorrhage or perforation; Z51.5 Encounter for palliative care; Z66 Do not resuscitate
CPT/HCPCS: 31720; 36415; 43246; 70450-TC; 71045-TC; 71250-TC; 71260-TC; 78582; 80048-TC; 80053-TC; 80061-TC; 80076-TC; 80202-TC; 81001; 82378; 82550-TC; 82570-TC; 82728-TC; 82784; 82962-TC; 83540-TC; 83605-TC; 83615-TC; 83735-TC; 83970; 84100-TC; 84153-TC; 84154-TC; 84155; 84155-TC; 84165; 84300-TC; 84484-TC; 85025-TC; 85378-TC; 85385-TC; 85610-TC; 85730-TC; 86140-TC; 86225; 86235; 86334; 86431-TC; 86850-TC; 87040-TC; 87070-TC; 87081-TC; 87086-TC; 87806; 92526; 92611-TC; 94799-TC; A9540; A9563; A9567; C9803; G0378; J0456; J0690; J0692; J0696; J1200; J2185; J2270; J2405; J2704; J3370; J3475; J3480; J3490; J7030; J7040; J7042; J7050; J7060; J7070; P9016-BL; Q9967; U0003

== ENCOUNTER 2020-04-23 10:34 | Emergency (ER) | payer OTHER ==
[~2020-04-23] VITALS: Ht 167.6 cm; Wt 79.4 kg
[~2020-04-23 10:34] MED LIST: ASPI-1169 PO; FERR325T28 GT; METO25TA6 PO; ONDA4VIA23 IVP
--- NOTE | 2020-04-23 10:54 | NUR ---
REFERRED TO CHANGE NUMBER OPERATOR SAMARA RE: CURRENT SITUATION?
--- NOTE | 2020-04-23 11:00 | NUR ---
CORNELIA FROM BOARD AND CARE FOR FURTHER EVAL. PT NONVERBAL, EYES CLOSED. RR EVEN & UNLABORED. PLACED ON SERVER MANAGER, ST. O2 SAT 97% ON 4L. PT SEEN & EVAL'D BY DR. SANCHEZ. WILL CONT TO MONITOR.
--- NOTE | 2020-04-23 12:13 | NUR ---
CALLED [facility], AWAITING MD CALL BACK
[2020-04-23] MEDS ORDERED: IV NS 0.9% 1,000 ML BAG IV ONE (12:30)
--- NOTE | 2020-04-23 13:12 | NUR ---
PT ASLEEP, RR EVEN & UNLABORED. ON TELE, ST. NO ACUTED DISTRESS NOTED & WILL CONT TO MONITOR.
--- NOTE | 2020-04-23 13:42 | NUR ---
RECIEVED A CALL FROM [facility]. PATIENT ACCEPTED TO [facility]. NUMBER FOR REPORT. [phone]. Yifan LEAL IS THE ACCEPTING. ETA FOR AMBULANCE IS 1 HOUR.
[2020-04-23 14:42] VITALS: BP 104/56
--- NOTE | 2020-04-23 15:00 | NUR ---
REPORT GIVEN TO DIOGO VINCENT FOR GIANCARLO. PT ENROUTE TO [facility].
== END 2020-04-23 15:04 | disposition short-term general hospital (02) ==
LOC: ER 10:35
DX: F03.90 Unspecified dementia, unspecified severity, without behavioral disturbance, psychotic disturbance, mood disturbance, and anxiety (principal); Z75.4 Unavailability and inaccessibility of other helping agencies; I10 Essential (primary) hypertension; I48.91 Unspecified atrial fibrillation; Z79.82 Long term (current) use of aspirin; Z79.899 Other long term (current) drug therapy; Z20.822 Contact with and (suspected) exposure to COVID-19
CPT/HCPCS: 87426; 96360; 99285; C9803; J7030